=== PATIENT | female | born 1990 | race African-American/Black ===

== ENCOUNTER 2020-01-03 19:33 | Emergency (ER) | payer SELFPAY ==
[2020-01-03 19:41] VITALS: BP 132/90; PULSE 95; RESP 17; TEMP 36.2; O2SAT 100
[2020-01-03] MEDS: SODIUM CHLORIDE 0.9% IV 1,000 ML 999 ML IV CONT (22:10)
[2020-01-03 22:20] LABS: Basophils Absolute Auto 0.1 K/mm3 (0.0-0.1); Basophils Percent Auto 0.9 % (0.2-1.2); Eosinophils Absolute Auto 0.1 K/mm3 (0-0.3); Eosinophils Percent Auto 1.5 % (0-4.4); Hematocrit 39.8 % (37.0-47.0); Hemoglobin 13.4 g/dL (12.0-15.0); Immature Granulocyte Absolute 0.01 K/mm3 (0.00-0.031); Immature Granulocyte Percent A 0.1 % (0-0.5); Lymphocytes Absolute Auto 3.47 K/mm3 (0.9-3.2); Lymphocytes Percent Auto 50.8 % (18.3-44.2); Mean Corpuscular HGB Conc 33.7 g/dl (32-36); Mean Corpuscular Hemoglobin 29.5 pg (26-34); Mean Corpuscular Volume 87.5 fl (80-100); Mean Platelet Volume 11.9 fl (7.4-10.4); Monocytes Absolute Auto 0.4 K/mm3 (0.1-0.6); Monocytes Percent Auto 5.6 % (2.6-8.5); Neutrophils Absolute Auto 2.8 K/mm3 (1.3-6.7); Neutrophils Percent Auto 41.1 % (45.5-73.1); Platelet Count Result 277 k/mm3 (150-375); Red Blood Count 4.55 M/mm3 (4.2-5.4); Red Cell Distribution Width 12.4 % (11.5-14.5); White Blood Count 6.8 K/mm3 (4.5-10.0)
[2020-01-03 22:28] LABS: Anion Gap 10 mmol/L (8-16); Blood Urea Nitrogen 14 mg/dL (7-17); Calcium 9.9 mg/dL (8.4-10.2); Carbon Dioxide 22 mmol/L (22-30); Chloride 105 mmol/L (98-107); Estimated CRCL calculation 73 ml/min; Estimated Glomerular Filt Rate > 60; Glucose 95 mg/dL (65-105); Potassium 3.8 mmol/L (3.4-5.0); Sodium 137 mmol/L (137-145)
--- NOTE | 2020-01-03 22:59 | ED.ANXIETY ---
HPI - Anxiety General Chief Complaint: Anxiety Stated Complaint: Panic attacks Time Seen by Provider: 01/03/20 21:37 Source: patient and family Mode of arrival: ambulatory Limitations: no limitations History of Present Illness HPI narrative: 29-year-old with a history of anxiety disorder here with complaints of unable to eat or drink for last few days. She states that she feels something is stuck in her throat. She thinks she is dehydrated. She is presently not on any anxiety medication. As per the mother she was put on anxiety medication which made her feel weird so she stopped taking the medication. She denies any fever or chills. complaint: anxiety Severity: moderate Provoking factors: none known Exacerbating factors: nothing Related Data Allergies Allergy/AdvReac Type Severity Reaction Status Date / Time No Known Allergies Allergy Unknown Verified 01/03/20 19:44 Review of Systems Review of Systems: All systems reviewed & are unremarkable except as noted in HPI and below Constitutional: Constitutional: Reports as per HPI Eyes: Eyes: Reports as per HPI ENT: Reports system reviewed and no additional complaints, except as documented Cardiovascular: Cardiovascular: Reports no additional cardiovascular complaints Respiratory: Respiratory: Reports no additional respiratory complaints Gastrointestinal: Gastrointestinal: Reports no additional gastrointestinal complaints Musculoskeletal: Musculoskeletal: Reports no additional musculoskeletal complaints Neurologic: Reports as per HPI Psychiatric: Psychiatric: Reports anxiety PMFSH Family History Family History Father Hypertension Sibling Asthma Social History Social History Second hand tobacco smoke exposure: No Alcohol intake: never Gender identity (if verbalized by the patient): Female Exam Narrative: Exam Narrative: GENERAL: Well-appearing, well-nourished, and in no acute distress. HEAD: Normocephalic, atraumatic. EYES: PERRLA and EOMI. ENT: Nares clear, no rhinorrhea or epistaxis. Mucous membranes moist. NECK: Supple. CHEST: Clear to auscultation. No respiratory distress. HEART: Regular rate and rhythm. No murmur heard. Normal peripheral pulses. ABDOMEN: Soft, nontender, nondistended, normal active bowel sounds. EXTREMITIES: Normal range of motion. No edema. SKIN: Warm, dry, no rash. NEURO: No focal deficits. Alert and oriented x3. PSYCH: Anxious and nervous Course Vital Signs Vital signs: Vital Signs Temperature 36.2 C L 01/03/20 19:41 Pulse Rate 95 01/03/20 19:41 Respiratory Rate 17 01/03/20 19:41 Blood Pressure 132/90 01/03/20 19:41 Pulse Oximetry 100 01/03/20 19:41 Temperature 36.2 C L 01/03/20 19:41 Pulse Rate 95 01/03/20 19:41 Respiratory Rate 17 01/03/20 19:41 Blood Pressure 132/90 01/03/20 19:41 Pulse Oximetry 100 01/03/20 19:41 MDM - Anxiety MDM Narrative Medical decision making narrative: With a history of not eating drinking and like to do a BMP to make sure that she is not dehydrated. Also give her IV Ativan to help her symptoms. Did discuss lab values with the patient and the mother. After IV Ativan patient started feeling much better I also gave her a liter of fluid. Differential Diagnosis Differential diagnosis: Likely panic disorder and acute anxiety Lab Data Result diagrams: 01/03/20 22:09 01/03/20 22:09 Labs: Lab Results 01/03/20 01/03/20 Range/Units 22:09 22:09 WBC 6.8 (4.5-10.0) K/mm3 RBC 4.55 (4.2-5.4) M/mm3 Hgb 13.4 (12.0-15.0) g/dL Hct 39.8 (37.0-47.0) % MCV 87.5 (80-100) fl MCH 29.5 (26-34) pg MCHC 33.7 (32-36) g/dl RDW 12.4 (11.5-14.5) % Plt Count 277 (150-375) k/mm3 MPV 11.9 H (7.4-10.4) fl Immature Gran % (Auto) 0.1 (0-0.5) % Neut % (Auto) 41.1 L (45.5-73.1) % Lymph % (A
[2020-01-03 23:20] VITALS: BP 102/58; PULSE 82; RESP 16; O2SAT 97
== END 2020-01-03 23:21 | disposition home or self-care (01) ==
PROVIDERS: Emergency Provider Family Medicine; PCP Family Medicine
DX: F41.9 Anxiety disorder, unspecified (principal)
CPT/HCPCS: 36415; 80048; 85025; 96361; 96374; 99284; J2060; J7030

== ENCOUNTER → 2020-10-09 01:15 | Outpatient (CLI) | payer OTHER, SELFPAY ==
[2020-10-09 19:38] LABS: SARS-CoV-2 RNA PCR Negative
== END ==
PROVIDERS: PCP Family Medicine; Visit Provider Internal Medicine Gastroenterology
DX: Z01.812 Encounter for preprocedural laboratory examination (principal); Z20.822 Contact with and (suspected) exposure to COVID-19
CPT/HCPCS: C9803; U0003; U0005

== ENCOUNTER 2020-10-12 00:06 | Day surgery (SDC) | payer OTHER, SELFPAY ==
[2020-09-30 12:14] VITALS: BMI 16.0
[2020-10-12 08:43] VITALS: BP 99/61; PULSE 74; RESP 16; TEMP 36.1; O2SAT 100; BMI 15.5
[2020-10-12] MEDS: LACTATED RINGERS 1,000 ML 150 ML IV CONT (08:59)
--- NOTE | 2020-10-12 09:25 | WPDANESEPPF ---
Anes - Initial Pre Proc Eval Procedure: Operation Date: 10/12/20 10:00 Proposed Procedures p Esophagogastroduodenoscopy - Khari Mar MD Date/Time: 10/12/20 09:25 Surgeon: Khari Mar MD Pre Op Diagnosis: dysphagia Patient Data Age: 30 Gender: F Height: 5 ft 3 in Weight: 39.7 kg Last Vital Signs Temp 97 F L 10/12/20 08:43 Pulse 74 10/12/20 08:43 Resp 16 10/12/20 08:43 BP 99/61 L 10/12/20 08:43 Pulse Ox 100 10/12/20 08:43 Allergies Allergy/AdvReac Type Severity Reaction Status Date / Time No Known Allergies Allergy Unknown Verified 09/30/20 12:13 Home Medications Medication Instructions Recorded Confirmed Type omeprazole 20 mg capsule,delayed 20 mg PO DAILY #30 cap 07/05/20 09/30/20 Rx release Patient hx anesthesia problems: none Family hx anesthesia problems: none PMFSH Past Medical History Medical History (Updated 10/12/20 @ 09:25 by Ishmael Zambrano MD) Anxiety Family History Family History Father Hypertension Sibling Asthma Social History Social History Smoking status: Former smoker Tobacco type: cigarettes Second hand tobacco smoke exposure: No Alcohol intake: former Substance use: never Substance use type: does not use Living arrangements: with family Gender identity (if verbalized by the patient): Female Spiritual care concerns: No Anes - Eval Final PreProcedure Day of Procedure 10/12/20 09:25 Patient weight: normal Heart: regular rate and rhythm Lungs: clear to auscultation Airway: Mallampati scale class II Neurological: alert and oriented Last oral intake: >/= 8 hours ASA classification: II Emergent: no Anesthetic plan: proceed Anesthesia type and monitoring: general GIVS and standard monitoring Informed Consent: The patient's anesthetic plan and its attendant risks and benefits were discussed with the patient/family/POA. Questions were solicited and answers provided to the satisfaction of the patient/family/POA.
--- NOTE | 2020-10-12 10:01 | PM.HPGS ---
History of Present Illness History of Present Illness Consent: Risks, benefits, and alternatives have been discussed and questions answered. Patient agrees to proceed with procedure. Chief complaint: dysphagia Narrative: Carola Weinstein is a 30 year old female intermittent dyphagia to solids, tried PPI with some improvement but not longer using, never had egd Review of Systems Constitutional: Constitutional: Denies headache(s) and Denies weakness Eyes: Eyes: Denies blurry vision ENT: Reports Normal hearing present, Denies headache(s) and Denies neck pain Cardiovascular: Cardiovascular: Denies chest pain and Denies dyspnea Respiratory: Respiratory: Denies dyspnea Gastrointestinal: Gastrointestinal: Reports no additional gastrointestinal complaints Genitourinary: Genitourinary: Denies dysuria Musculoskeletal: Musculoskeletal: Denies neck pain Integumentary/Breasts: Skin/Breast: Denies dry skin Neurologic: Reports Normal hearing present, Denies headache(s) and Denies weakness Psychiatric: Psychiatric: Denies anxiety Endocrine: Endocrine: Denies change in body appearance Hematologic/Lymphatic: Hematologic/Lymphatic: Denies easy bleeding Allergic/Immunologic: Allergic/Immunologic: Denies urticaria [facility] Past Medical History Medical History (Updated 10/12/20 @ 10:01 by Khari Mar MD) Anxiety Dysphagia Family History Family History Father Hypertension Sibling Asthma Social History Social History Smoking status: Former smoker Tobacco type: cigarettes Second hand tobacco smoke exposure: No Alcohol intake: former Substance use: never Substance use type: does not use Living arrangements: with family Gender identity (if verbalized by the patient): Female Spiritual care concerns: No Meds Home Medications and Allergies Home Medications Medication Instructions Recorded Confirmed Type omeprazole 20 mg capsule,delayed 20 mg PO DAILY #30 cap 07/05/20 09/30/20 Rx release Allergies Allergy/AdvReac Type Severity Reaction Status Date / Time No Known Allergies Allergy Unknown Verified 09/30/20 12:13 Vital Signs Vital Signs - 24 hr 10/12/20 08:43 Temperature 97 F L Pulse Rate 74 Respiratory Rate 16 Blood Pressure 99/61 L Pulse Oximetry 100 Exam Const: General: comfortable and no acute distress HENMT: General nose exam: Normal nares present Eyes: General: appearance normal, both eyes and all related structures Neck: Neck: no JVD Resp: Auscultation: clear to auscultation bilaterally Cardio: Rate: regular rate Rhythm: regular rhythm GI: Inspection: non-distended GI Palp: Yes Soft to palpation Skin: General skin exam: normal color Neuro: General: gait normal Speech: normal speech Extrem: General: normal to inspection Psych: Mental Status: mental status grossly normal Assessment and Plan Assessment and plan (1) Dysphagia: Code(s): R13.10 - Dysphagia, unspecified Status: Acute Assessment and Plan: egd with bx
[2020-10-12] MEDS: BENZOCAINE (*SP) 60 ML SPRAY CAN (HURRICAINE) 1 SPRAY MUCOUS MEM (10:06)
[2020-10-12 10:15] VITALS: BP 91/57; PULSE 63; RESP 24; O2SAT 100
[2020-10-12 10:25] VITALS: BP 91/55; PULSE 62; RESP 20; O2SAT 100
[2020-10-12 10:35] VITALS: BP 102/72; PULSE 61; RESP 18; O2SAT 100
== END 2020-10-12 10:46 | disposition home or self-care (01) ==
PROVIDERS: PCP Family Medicine; Visit Provider Internal Medicine Gastroenterology
PROC: 0DJ08ZZ Inspection of Upper Intestinal Tract, Via Natural or Artificial Opening Endoscopic (ICD-10-PCS; CPT 43235; principal; 2020-10-12 10:00)
DX: R13.10 Dysphagia, unspecified (principal)
CPT/HCPCS: 43239; 88305; J2704; J7120

== ENCOUNTER 2021-02-26 15:10 | Emergency (ER) | payer OTHER, SELFPAY ==
--- NOTE | 2021-02-26 15:53 | ED_ITS ---
HPI - General Adult General Chief complaint: Skin/Abscess/Foreign Body Stated complaint: rash to left shoulder Time Seen by Provider: 02/26/21 15:53 Related Data Allergies Allergy/AdvReac Type Severity Reaction Status Date / Time No Known Allergies Allergy Unknown Verified 02/26/21 15:16 [facility] Past Medical History Medical History Anxiety Dysphagia Family History Family History Father Hypertension Sibling Asthma Social History Social History Smoking status: Current some day smoker (occasional cigar) Tobacco type: cigarettes Second hand tobacco smoke exposure: No Alcohol intake: former Substance use: never Substance use type: does not use Gender identity (if verbalized by the patient): Female Spiritual care concerns: No Medical Decision Making Lab Data Labs: UCG Bedside Result Negative Reference Range: Negative UCG Bedside Result Negative Reference Range: Negative Discharge Plan Discharge Clinical Impression: Insect bite Qualifiers: Encounter type: initial encounter Site of insect bite: shoulder Laterality: left Qualified Code(s): S40.262A - Insect bite (nonvenomous) of left shoulder, initial encounter Patient Disposition: Home, Self-Care Condition: Stable Instructions: Cellulitis (ED), Insect Bite or Sting (ED) Prescriptions: New doxycycline hyclate 100 mg capsule 100 mg PO BID 7 Days Qty: 14 RF: 0 No Action omeprazole 40 mg capsule,delayed release(DR/EC) 40 mg PO DAILY Qty: 90 RF: 3 Follow-up/Referrals: Hair Yuan MD [Primary Care Provider] - 02/28/21 Time of Disposition: 16:05
--- NOTE | 2021-02-26 16:01 | ED.SKABFB ---
HPI - Skin/Abscess/Foreign Bdy General Chief complaint: Skin/Abscess/Foreign Body Stated complaint: rash to left shoulder Time Seen by Provider: 02/26/21 15:53 Source: patient Mode of arrival: ambulatory Limitations: no limitations History of Present Illness HPI narrative: Patient is a 30-year-old female complaining of tender red area on her left shoulder possibly an insect bite few days ago but now it has enlarged. Patient denies any facial, lip, tongue or throat swelling. Patient denies any shortness of breath. Patient denies any fever or chills. Patient denies any other rash. Related Data Allergies Allergy/AdvReac Type Severity Reaction Status Date / Time No Known Allergies Allergy Unknown Verified 02/26/21 15:16 Review of Systems Review of Systems: All systems reviewed & are unremarkable except as noted in HPI and below Constitutional: Constitutional: Reports as per HPI Eyes: Eyes: Denies blurry vision, Denies change in vision and Denies loss of vision ENT: Denies dizziness, Denies ear discharge, Denies headache(s), Denies lip swelling, Denies epistaxis, Denies nasal congestion, Denies neck pain, Denies throat swelling and Denies tongue swelling Cardiovascular: Cardiovascular: Denies chest pain, Denies chest pain at rest, Denies chest pain with activity, Denies diaphoresis, Denies rapid heart rate, Denies edema, Denies irregular heart rhythm, Denies lightheadedness, Denies palpitations, Denies dyspnea and Denies dyspnea on exertion Respiratory: Respiratory: Denies chest congestion, Denies cough, Denies hemoptysis, Denies dyspnea and Denies dyspnea on exertion Gastrointestinal: Gastrointestinal: Denies abdominal pain, Denies melena, Denies hematochezia, Denies diarrhea, Denies nausea, Denies vomiting and Denies hematemesis Musculoskeletal: Musculoskeletal: Denies abnormal gait, Denies deformity, Denies joint swelling, Denies limited range of motion, Denies neck pain and Denies numbness Neurologic: Denies Abnormal speech present, Denies abnormal gait, Denies confusion, Denies dizziness, Denies headache(s), Denies focal weakness, Denies loss of vision, Denies numbness, Denies Other visual disturbances, Denies Sensory deficit (Neuro) and Denies weakness Psychiatric: Psychiatric: Denies confusion, Denies depression, Denies auditory hallucinations, Denies homicidal ideation and Denies suicidal ideation Endocrine: Endocrine: Denies cold intolerance, Denies excessive sweating, Denies fatigue, Denies heat intolerance and Denies palpitations Hematologic/Lymphatic: Hematologic/Lymphatic: Denies easy bleeding and Denies easy bruising Allergic/Immunologic: Allergic/Immunologic: Denies lip swelling, Denies throat swelling and Denies tongue swelling PMFSH Past Medical History Medical History Anxiety Dysphagia Family History Family History Father Hypertension Sibling Asthma Social History Social History Smoking status: Current some day smoker (occasional cigar) Tobacco type: cigarettes Second hand tobacco smoke exposure: No Alcohol intake: former Substance use: never Substance use type: does not use Gender identity (if verbalized by the patient): Female Spiritual care concerns: No Exam Const: General: cooperative, healthy appearing, comfortable, no acute distress, well developed, alert and awake; No confusion Orientation/consciousness: oriented to person, oriented to place, oriented to time, patient oriented x3 and No confusion Limitations: no limitations HENMT: Head: normal to inspection, normocephalic and atraumatic Ears: hearing grossly normal bilaterally, TM normal on the right and TM normal on the left General nose exam: Normal external nose present, Normal nares present and No nasal discharge present Face and sinus: normal facial ex
== END 2021-02-26 17:58 | disposition home or self-care (01) ==
PROVIDERS: Emergency Provider Emergency Medicine; PCP Family Medicine
DX: S41.052A Open bite of left shoulder, initial encounter (principal); F17.210 Nicotine dependence, cigarettes, uncomplicated; F17.290 Nicotine dependence, other tobacco product, uncomplicated; W57.XXXA Bitten or stung by nonvenomous insect and other nonvenomous arthropods, initial encounter
CPT/HCPCS: 81025; 99283

== ENCOUNTER 2021-12-05 12:33 | Outpatient (CLI) | payer OTHER, SELFPAY ==
--- NOTE | ~2021-12-05 | US_ITS ---
EXAMINATION: US OB <= 14 weeks fetus DATE: 12/05/2021 13:42 INDICATION: Uncertain dating of TECHNIQUE: Real-time pelvic ultrasound utilizing transabdominal probe was performed. The michelle dennis radiologist was not present for the study. COMPARISON: None. FINDINGS: The uterus measures 13.8 x 9.0 x 10.7 cm. There is an anterior placenta which appears low lying alth ough the cervix is not identified on the provided images.There is a single fetus in variable position within the gestational sac with crown-rump length of 7.5 cm which correlates with an estimated gesta tional age of 13 weeks and 4 days. heart motion is identified measuring 158 beats per minute (b pm) by M-mode Doppler. 2.5 cm subserosal fibroid along the anterior uterus The following biometric data were obtained: BPD: 2.2 cm -> 13 weeks 4 days Abdominal circumference: 7.4 cm -> 13 weeks 6 days Femur length: 1.1 cm -> 13 weeks 1 days These measurements are concordant. Estimated weight: 77 g (+/-) 12 g IMPRESSION: 1. Single living fetus in variable presentation with heart rate of 158 bpm. 2. Gestational age by ultrasound of 13 weeks 4 day(s) +/- 1 week 0 day(s) with ultrasound estimated d ate of delivery (SERJIO) of 06/08/2022. Estimated weight is 76th percentile by Hadlock criteria when 06/13/2022 is used as the SERJIO. Please correlate with clinical information or earlier ultrasounds for m ost accurate SERJIO. 3. Anterior placenta which appears low lying although the cervix is not identified on the provided im ages. 4. 2.5 cm anterior subserosal fibroid. Reviewed, dictated and finalized at location A. IMPRESSION: 1. Single living fetus in variable presentation with heart rate of 158 bp m. 2. Gestational age by ultrasound of 13 weeks 4 day(s) +/- 1 week 0 day(s) with ultrasound estimated date of delivery (SERJIO) of 06/08/2022. Estimated weight is 76th percentile by Hadlock criteria when 06/13/2022 is used as the SERJIO. Pleas e correlate with clinical information or earlier ultrasounds for most accurate SERJIO. 3. Anterior placenta which appears low lying although the cervix is not identif ied on the provided images. 4. 2.5 cm anterior subserosal fibroid.
== END 2021-12-05 12:34 | disposition home or self-care (01) ==
PROVIDERS: PCP Family Medicine; Visit Provider Advanced Practice Midwife
DX: Z36.87 Encounter for antenatal screening for uncertain dates (principal); Z3A.13 13 weeks gestation of pregnancy; D25.2 Subserosal leiomyoma of uterus
CPT/HCPCS: 76801

== ENCOUNTER 2022-01-17 10:49 | Outpatient (CLI) | payer OTHER, SELFPAY ==
--- NOTE | ~2022-01-17 | US_ITS ---
EXAMINATION: US OB /maternal detail DATE: 01/17/2022 12:11 INDICATION: Second trimester anatomic survey TECHNIQUE: Real-time ultrasound of the pelvis was performed. COMPARISON: None. FINDINGS: There is a single living fetus in variable presentation. The placenta is anterior and 2.9 cm from the internal cervical os. There is a 2.6 x 2.7 x 1.3 cm hypoechoic area of the placenta. heart rat e is 140 beats per minute (bpm). cardiac activity and movement are noted. The amniotic f luid index is subjectively normal. The following anatomy was identified as normal: 4 chamber heart 3 vessel cord cord insertion kidneys urinary bladder stomach spine diaphragm ventricles cisterna magna cerebellum The following biometric data were obtained: Biparietal diameter (BPD): 4.3 cm; head circumference (HC): 16.2 cm; abdominal circumference (AC): 14 .8 cm; femur length (FL): 3.2 cm. These measurements are concordant. Estimated weight is 316 g +/- 47 g, which correlates with the 90th percentile when 06/13/2022 is used as estimated date of delivery. As single measurements, these parameters are each equal to the following estimated gestational ages w ith ranges of +/- 2 standard deviations: BPD: 19 weeks 0 days +/- 1 weeks 5 days. HC: 19 weeks 0 days +/- 1 weeks 3 days. AC: 20 weeks 1 days +/- 2 weeks 0 days. FL: 19 weeks 6 days +/- 1 weeks 6 days. estimated gestational age based solely on measurements from this exam is 19 weeks 4 days +/- 1 weeks 3 days. IMPRESSION: 1. Single living fetus in variable presentation. 2. Estimated weight is 316 g +/- 47 g, which correlates with the 90th percentile when 06/13/2022 is used as estimated date of delivery. 3. Hypoechoic area in the placenta measuring up to 2.7 cm, probable venous bautista. Attention on follow- up examination is recommended. Reviewed, dictated and finalized at location B. IMPRESSION: 1. Single living fetus in variable presentation. 2. Estimated weight is 316 g +/- 47 g, which correlates with the 90th per centile when 06/13/2022 is used as estimated date of delivery. 3. Hypoechoic area in the placenta measuring up to 2.7 cm, probable venous bautista . Attention on follow-up examination is recommended.
== END 2022-01-17 10:50 | disposition home or self-care (01) ==
LOC: ANHIMG 10:50
PROVIDERS: PCP Family Medicine; Visit Provider Advanced Practice Midwife
DX: O44.42 Low lying placenta NOS or without hemorrhage, second trimester (principal); Z3A.19 19 weeks gestation of pregnancy
CPT/HCPCS: 76805

== ENCOUNTER 2022-02-06 13:39 | Emergency (ER) | payer OTHER, SELFPAY ==
[2022-02-06 13:41] VITALS: BP 109/71; PULSE 90; RESP 16; TEMP 36.6; O2SAT 99
[2022-02-06 14:03] VITALS: RESP 18
--- NOTE | 2022-02-06 14:14 | ED.GENADULT ---
HPI - General Adult General Chief complaint: Unspecified Stated complaint: sinus infection Time Seen by Provider: 02/06/22 13:47 History of Present Illness HPI narrative: 31-year-old female who is [address] Skelton presents the emergency room with right-sided facial tenderness, sinus congestion, postnasal drip, resolved sore throat and occasional cough for 6 days. also states that she was sneezing first couple of days of symptoms. Admits to taking baby dose of Tylenol but has not alleviated her symptoms. Denies fevers. Related Data Home Medications Medication Instructions Recorded Confirmed buspirone 5 mg tablet mg 02/06/22 fluoxetine 10 mg capsule mg 02/06/22 02/06/22 Allergies Allergy/AdvReac Type Severity Reaction Status Date / Time No Known Allergies Allergy Unknown Verified 02/06/22 13:39 Review of Systems Review of Systems: CONSTITUTIONAL: Denies fever, chills, or sweats. EYES: Denies visual changes, redness, or discharge. ENT: Reports rhinorrhea, congestion, sore throat, or otalgia. CARDIOVASCULAR: Denies chest pain, palpitations, or edema. RESPIRATORY: Denies cough or dyspnea. GASTROINTESTINAL: Denies abdominal pain, nausea, vomiting, or diarrhea. GENITOURINARY: Denies dysuria or hematuria. SKIN: Denies rash or itching. MUSCULOSKELETAL: Denies back pain, joint pain, or myalgia. NEUROLOGIC: Denies headache, numbness, dizziness, or weakness. PSYCHIATRIC: Denies anxiety or depression. PMFSH Past Medical History Medical History Anxiety Dysphagia Family History Family History Father Hypertension Sibling Asthma Social History Social History Smoking status: Current some day smoker (occasional cigar) Tobacco type: cigarettes Second hand tobacco smoke exposure: No Alcohol intake: former Substance use: never Substance use type: does not use Gender identity (if verbalized by the patient): Female Spiritual care concerns: No Exam Narrative: GENERAL: Well-appearing, well-nourished, no physical limitations, and in no acute distress. HEAD: Normocephalic, atraumatic. Tenderness over the right maxilla sinus EYES: Conjunctivae normal, PERRLA and EOMI. ENT: External nose normal, Nares clear, no rhinorrhea or epistaxis. Mucous membranes moist. Oropharynx without tonsillar hypertrophy exudate or other lesions. Clear effusion bilaterally NECK: Supple. No meningeal signs. No adenopathy or masses. No carotid bruits or JVD CHEST: Clear to auscultation. No respiratory distress. No wheezes rales or rhonchi. HEART: Regular rate and rhythm. No murmur heard. Normal peripheral pulses. EXTREMITIES: Normal range of motion. No edema. No clubbing or cyanosis SKIN: Warm, dry, no rash. No noted wounds NEURO: No focal deficits. Alert and oriented x3. MAEW. CN's II-XI intact bilaterally, normal gait PSYCH: Cooperative. Normal mood and affect. Course Course Emergency Course: 1509: Case with Dr. Donovan. She is okay with patient going home on low-dose Sudafed and Flonase. Vital Signs Vital signs: Vital Signs Temperature 36.6 C 02/06/22 13:41 Pulse Rate 90 02/06/22 13:41 Respiratory Rate 16 02/06/22 13:41 Blood Pressure 109/71 02/06/22 13:41 Pulse Oximetry 99 02/06/22 13:41 Temperature 36.6 C 02/06/22 13:41 Pulse Rate 90 02/06/22 13:41 Respiratory Rate 18 02/06/22 14:03 Blood Pressure 109/71 02/06/22 13:41 Pulse Oximetry 99 02/06/22 13:41 Medical Decision Making Vital Signs Vital Signs: Vital Signs Temperature 36.6 C 02/06/22 13:41 Pulse Rate 90 02/06/22 13:41 Respiratory Rate 16 02/06/22 13:41 Blood Pressure 109/71 02/06/22 13:41 Pulse Oximetry 99 02/06/22 13:41 Temperature 36.6 C 02/06/22 13:41 Pulse Rate 90 02/06/22 13:41 Respiratory Ra
[2022-02-06 15:01] LABS: SARS-CoV-2 RNA PCR Negative
== END 2022-02-06 15:53 | disposition home or self-care (01) ==
LOC: ANHED 15:35
PROVIDERS: Emergency Provider Nurse Practitioner Family; PCP Family Medicine
DX: O99.512 Diseases of the respiratory system complicating pregnancy, second trimester (principal); J32.9 Chronic sinusitis, unspecified; O99.342 Other mental disorders complicating pregnancy, second trimester; F41.9 Anxiety disorder, unspecified; O99.332 Smoking (tobacco) complicating pregnancy, second trimester; F17.290 Nicotine dependence, other tobacco product, uncomplicated; F17.210 Nicotine dependence, cigarettes, uncomplicated; Z20.822 Contact with and (suspected) exposure to COVID-19; Z3A.00 Weeks of gestation of pregnancy not specified
CPT/HCPCS: 99283; C9803; U0003; U0005

== ENCOUNTER 2022-02-22 11:07 | Outpatient (CLI) | payer OTHER, SELFPAY ==
--- NOTE | ~2022-02-22 | US_ITS ---
EXAMINATION: US OB follow up DATE: 02/22/2022 12:08 INDICATION: Size less than dates during second trimester TECHNIQUE: Real-time ultrasound of the pelvis was performed. The interpreting radiologist was not pre sent for the study. COMPARISON: None. FINDINGS: There is a single living fetus in vertex presentation. The placenta is anterior. card iac activity and movement are noted. heart rate is 144 beats per minute (bpm). The amniot ic fluid index is 11.9 cm which is normal (normal range: 9.8 cm to 21.9 cm). A nuchal cord is noted. The following biometric data were obtained: Biparietal diameter (BPD): 5.8 cm; head circumference (HC): 21.9 cm; abdominal circumference (AC): 19 .5 cm; femur length (FL): 4.5 cm. These measurements are concordant. Estimated weight is 685 g +/- 102 g, which correlates with the 50th percentile when 06/13/2022 is used as estimated date of delivery. As single measurements, these parameters are each equal to the following estimated gestational ages w ith ranges of +/- 2 standard deviations: BPD: 23 weeks 5 days +/- 1 weeks 5 days. HC: 24 weeks 0 days +/- 1 weeks 3 days. AC: 24 weeks 1 days +/- 2 weeks 1 days. FL: 24 weeks 5 days +/- 2 weeks 1 days. estimated gestational age based solely on measurements from this exam is 24 weeks 1 days +/- 1 weeks 5 days. IMPRESSION: 1. Single living fetus in vertex presentation. 2. Nuchal cord. 3. Normal amniotic fluid index. 4. Estimated weight is 685 g +/- 102 g, which correlates with the 50th percentile when 06/13/2022 is used as estimated date of delivery. Reviewed, dictated and finalized at location A. IMPRESSION: 1. Single living fetus in vertex presentation. 2. Nuchal cord. 3. Normal amniotic fluid index. 4. Estimated weight is 685 g +/- 102 g, which correlates with the 50th pe rcentile when 06/13/2022 is used as estimated date of delivery.
== END 2022-02-22 11:08 | disposition home or self-care (01) ==
PROVIDERS: PCP Family Medicine; Visit Provider Advanced Practice Midwife
DX: O36.5930 Maternal care for other known or suspected poor fetal growth, third trimester, not applicable or unspecified (principal); Z3A.00 Weeks of gestation of pregnancy not specified
CPT/HCPCS: 76816

== ENCOUNTER 2022-04-10 11:27 | Outpatient (CLI) | payer OTHER, SELFPAY ==
[2022-04-10 13:11] LABS: Hematocrit 33.8 % (37.0-47.0); Hemoglobin 11.1 g/dL (12.0-15.0)
[2022-04-10 13:20] LABS: Glucose 1 Hour PP 50gm Dose 118 mg/dL
[2022-04-10 14:01] LABS: HIV 1/2 Ab P24 Ag Result Negative (Negative)
== END 2022-04-10 11:28 | disposition home or self-care (01) ==
LOC: ANHLAB 11:29
PROVIDERS: PCP Family Medicine; Visit Provider Obstetrics & Gynecology Gynecology
DX: Z36.9 Encounter for antenatal screening, unspecified (principal)
CPT/HCPCS: 36415; 82947; 85014; 85018; 86703; G0432

== ENCOUNTER 2022-04-19 11:20 | Outpatient (CLI) | payer OTHER, SELFPAY ==
--- NOTE | ~2022-04-19 | US_ITS ---
EXAMINATION: US OB follow up DATE: 04/19/2022 12:10 INDICATION: Size less than dates during third trimester TECHNIQUE: Real-time ultrasound of the pelvis was performed. The interpreting radiologist was not pre sent for the study. COMPARISON: 02/22/2022 FINDINGS: There is a single living fetus in vertex presentation. The placenta is anterior. card iac activity and movement are noted. heart rate is 146 beats per minute (bpm). The amniot ic fluid index is 10.1 cm which is normal. The following biometric data were obtained: Biparietal diameter (BPD): 7.7 cm; head circumference (HC): 27.2 cm; abdominal circumference (AC): 25 .4 cm; femur length (FL): 6.2 cm. These measurements are concordant. Estimated weight is 1583 g +/- 237 g, which correlates with the 6th percentile when 06/13/2022 is used as estimated date of delivery. As single measurements, these parameters are each equal to the following estimated gestational ages w ith ranges of +/- 2 standard deviations: BPD: 30 weeks 5 days +/- 3 weeks 1 days. HC: 30 weeks 2 days +/- 3 weeks 0 days. AC: 29 weeks 4 days +/- 2 weeks 1 days. FL: 32 weeks 0 days +/- 3 weeks 0 days. estimated gestational age based solely on measurements from this exam is 30 weeks 5 days +/- 2 weeks 1 days. IMPRESSION: 1. Single living fetus in vertex presentation. 2. Estimated weight is 1583 g +/- 237 g, which correlates with the 6th percentile when 06/13/2022 is used as estimated date of delivery. 3. Normal amniotic fluid index. Reviewed, dictated and finalized at location [facility]. [facility] IMPRESSION: 1. Single living fetus in vertex presentation. 2. Estimated weight is 1583 g +/- 237 g, which correlates with the 6th pe rcentile when 06/13/2022 is used as estimated date of delivery. 3. Normal amniotic fluid index.
== END 2022-04-19 11:21 | disposition home or self-care (01) ==
PROVIDERS: PCP Family Medicine; Visit Provider Advanced Practice Midwife
DX: O36.5930 Maternal care for other known or suspected poor fetal growth, third trimester, not applicable or unspecified (principal); Z3A.30 30 weeks gestation of pregnancy
CPT/HCPCS: 76816

== ENCOUNTER 2022-04-20 09:18 | Outpatient (RCR) | payer OTHER, SELFPAY ==
[2022-04-19 18:43] VITALS: BP 116/57; PULSE 104
--- NOTE | 2022-04-19 19:54 | PC.NURSE ---
BPP showing low fluid level based on preliminary report, final repost pending. Monitors reapplied.
--- NOTE | 2022-04-19 20:19 | PC.NURSE ---
Robbin Hammer CNM notified of low JUAN noted on US. Dock Superintendent states that patient had an US this morning for growth and JUAN was normal at that time. Also informed that US tech was unable to do Cord Dopplers at this time due to Tech limitations. Ok to dc patient home with kick counts and to have patient come tomorrow to do cord dopplers and repeat JUAN.
--- NOTE | 2022-04-19 20:26 | PC.NURSE ---
Tracing from [id number], Tracing reactive, baseline 125 with accels.
--- NOTE | 2022-04-19 21:10 | PC.NURSE ---
Addendum entered by Christina Mendenhall RN 04/19/22 21:25: Call was placed at 2027 Original Note: Plan of care discussed with Patient and spouse, patient voicing concerns regarding fluid level. Patient denies leaking. Patient wishing to talk to aerial gunner. Radio Television Technical Director called and spoke to patient. Patient to come tomorrow for Dopplers and repeat JUAN.
--- NOTE | ~2022-04-20 | US_ITS ---
EXAMINATION: US OB limited w BPP DATE: 04/19/2022 20:07 INDICATION: Evaluate biophysical profile with JUAN, size smaller than dates. TECHNIQUE: Real-time ultrasound of the pelvis was performed. COMPARISON: OB ultrasound follow-up, same date. FINDINGS: There is a single living fetus in vertex presentation, longitudinal lie. The placenta is anterior. T he placental margin is low lying but does not appear to abut or cover the internal os, noting that th e margin of the patella in the cervix were difficult to visualize. heart rate is 135 beats per minute (bpm). The amniotic fluid index is 3.8, which is low. macro biometrics Biophysical profile performed by the technologist: breathing (30 sec sustained breathing in 30 minutes): 2 out of 2 movement (3 gross body movements in 30 minutes: 2 out of 2 tone (one episode of bdimfbc-bjclhkgpn-yqbuzuw limb movement): 2 out of 2 Amniotic fluid pocket (2 cm): 0 out of 2 Total score: 6 out of 8 IMPRESSION: 1. Single living fetus in vertex presentation, longitudinal lie. 2. Normal, anterior placenta. 3. Biophysical profile 6 out of 8. 4. Oligohydramnios. 5. The placental margin may be low lying but does not appear to abut or cover the internal os, noting that the margin of the placenta and the cervix were difficult to visualize. Reviewed, dictated and finalized at location K. [facility] IMPRESSION: 1. Single living fetus in vertex presentation, longitudinal lie. 2. Normal, anterior placenta. 3. Biophysical profile 6 out of 8. 4. Oligohydramnios. 5. The placental margin may be low lying but does not appear to abut or cover t he internal os, noting that the margin of the placenta and the cervix were diff icult to visualize.
--- NOTE | ~2022-04-20 | US_ITS ---
EXAMINATION: 1. US OB limited 2. US umbilical doppler DATE: 04/20/2022 09:47 INDICATION: Small for gestational age. Third trimester. TECHNIQUE: Real-time ultrasound of the pelvis was performed. COMPARISON: Ultrasound 04/19/2022 FINDINGS: There is a single fetus in vertex presentation. The placenta is anterior. heart rate is 159 be ats per minute (bpm). The amniotic fluid index is 9.0 cm, which is normal. Umbilical artery pulsed Doppler demonstrates a peak systolic to end-diastolic velocity ratio (S/D rat io) of 2.2 (5th percentile = 2.16, 95th percentile = 3.8). IMPRESSION: 1. Single living fetus in vertex presentation. 2. Normal umbilical artery Doppler. Reviewed, dictated and finalized at location A. [facility] IMPRESSION: 1. Single living fetus in vertex presentation. 2. Normal umbilical artery Doppler.
--- NOTE | 2022-04-20 09:25 | PC.NURSE ---
Pt here for U/S. Order given by Chantell ABADM to NOT perform NST prior to U/S.
--- NOTE | 2022-04-20 10:17 | PC.NURSE ---
U/S reports called to Chantell Tovar CNM. OK to discharge to home. Phone given to pt for her to speak to provider. Pt instructed to return to L&D if she should have any change in baby's normal movement pattern, any leakage of fluid, vaginal bleeding, or more than 6 contractions in an hour if still less than 36 weeks- verbalizes understanding.
== END 2022-06-03 07:38 | disposition home or self-care (01) ==
LOC: ANHOBOP 09:18
PROVIDERS: PCP Family Medicine; Visit Provider Advanced Practice Midwife
DX: O36.5930 Maternal care for other known or suspected poor fetal growth, third trimester, not applicable or unspecified (principal); O41.03X0 Oligohydramnios, third trimester, not applicable or unspecified; Z3A.32 32 weeks gestation of pregnancy
CPT/HCPCS: 59025; 76815; 76819; 76820

== ENCOUNTER 2022-06-01 05:54 | Inpatient (IN) | payer OTHER, SELFPAY ==
[2022-06-01] VITALS (105 sets, daily range): BP systolic 93–135; BP diastolic 48–95; PULSE 25–154; RESP 16–18; TEMP 36.6–37.3; O2SAT 74–100; BMI 21.2
--- NOTE | 2022-06-01 06:33 | P.PNAN_ITS ---
Anes - Eval Pre Procedure Procedure: labor epidural Date/Time: 06/01/22 06:33 Surgeon: anthony Preop Diagnosis: pain during labor Pre Op Diagnosis: IOL Patient Data Age: 32 Gender: F Height: Weight: Last Vital Signs Temp 36.6 C 06/01/22 06:29 Allergies Allergy/AdvReac Type Severity Reaction Status Date / Time No Known Allergies Allergy Unknown Verified 05/12/22 12:30 Home Medications Medication Instructions Recorded Confirmed Type omeprazole 40 mg capsule,delayed 40 mg PO DAILY #90 caps 01/28/21 06/01/22 Rx release buspirone 5 mg tablet 5 mg PO DAILY 02/06/22 06/01/22 History fluoxetine 10 mg capsule 20 mg PO DAILY 02/06/22 06/01/22 History ferrous sulfate 325 mg (65 mg 325 mg PO DAILY 04/19/22 04/19/22 History iron) tablet vit no.95-ferrous 1 tablet PO DAILY 04/19/22 06/01/22 History fumarate 28 mg-folic acid 800 mcg tablet () Patient hx anesthesia problems: none Family hx anesthesia problems: none Results Review: All pre-operative results and documents have been reviewed as part of the pre- operative evaluation. PMFSH Past Medical History Medical History (Updated 06/01/22 @ 06:33 by Diane Ng CRNA) Anxiety Dysphagia IUP (intrauterine ), incidental Family History Family History Father Hypertension Sibling Asthma Social History Social History Smoking status: Current some day smoker (occasional cigar) Tobacco type: cigarettes Second hand tobacco smoke exposure: No Alcohol intake: former Substance use: never Substance use type: does not use Living arrangements: with family Gender identity (if verbalized by the patient): Female Spiritual care concerns: No Exam Day of Procedure 06/01/22 06:33
[2022-06-01] MEDS: LACTATED RINGERS 1,000 ML 125 ML IV CONT ×2 (06:51→08:31)
[2022-06-01] MEDS: OXYTOCIN 30 UNITS/NS 500 ML 30 UNITS/500 ML BAG IV CONT (06:52)
--- NOTE | 2022-06-01 06:56 | LDADM ---
This patient, Carola Weinstein, was admitted to Labor/Delivery/Recovery 106 on 06/01/22 at 05:54. Plans for labor, pain management and were discussed with patient. Patient/family oriented to hospital policies and general routines including ID bracelet, bed and alarms, visiting hours, pain management, procedures, bathroom and other care routines, personal items, smoking policy, room service/diet and guest tray routines, security routines, and visiting hours. Patient/Family are encouraged to report perceived risks to care and to ask questions if they do not understand what they are told or what they should do. See OBIX for further documentation.
[2022-06-01 06:57] LABS: Basophils Percent Auto 0.4 % (0.2-1.2); Eosinophils Absolute Auto 0.2 K/mm3 (0-0.3); Eosinophils Percent Auto 1.8 % (0-4.4); Hematocrit 34.5 % (37.0-47.0); Hemoglobin 11.4 g/dL (12.0-15.0); Immature Granulocyte Absolute 0.17 K/mm3 (0.00-0.031); Immature Granulocyte Percent A 2.1 % (0-0.5); Lymphocytes Absolute Auto 2.06 K/mm3 (0.9-3.2); Mean Corpuscular Hemoglobin 31.1 pg (26-34); Monocytes Absolute Auto 0.5 K/mm3 (0.1-0.6); Monocytes Percent Auto 6.2 % (2.6-8.5); Neutrophils Absolute Auto 5.3 K/mm3 (1.3-6.7); Neutrophils Percent Auto 64.5 % (45.5-73.1); Platelet Count Result 161 k/mm3 (150-375); Red Blood Count 3.67 M/mm3 (4.2-5.4); Red Cell Distribution Width 13.4 % (11.5-14.5); White Blood Count 8.2 K/mm3 (4.5-10.0)
--- NOTE | 2022-06-01 07:37 | WPDOBADMIT ---
Obstetrics - Admit Note Admission Note: record reviewed. No pertinent additions to the history and/or any subsequent changes in the physical findings that are not consistent with the expected course of the were found. Additions to the history and/or subsequent changes in the physical findings follow. Here for MIL for borderline IUGR and advance dilation. Cervix 4/80/+1 AROM with clear fluid. FHTs Reactive
[2022-06-01] MEDS: ONDANSETRON INJ 4 MG/2 ML VIAL IV PUSH (09:04)
[2022-06-01] MEDS: FLUoxetine HCL 20 MG CAPSULE PO (10:50)
[2022-06-01] MEDS: busPIRone HCL 5 MG TABLET PO (10:51)
--- NOTE | 2022-06-01 12:10 | PM.OBPRVD ---
OB - Delivery Note Procedure Delivery date: 06/01/22 Procedure: Events: Intrauterine Growth Restriction (IUGR) and Oligohydramnios Induction method: AROM and Per Pitocin Protocol Delivery monitor: External FHT and External Uterine Route of delivery: Laceration Description: Perineal - 1st Degree Delivery repair: vicryl (3-0) Specimen: Yes (placenta) Quantitative Blood Loss (ml): 50 Anesthesia type: Epidural Disposition: Floor Baby Date of : 06/01/22 Weeks of gestation at delivery: 39 Infant gender: Male presentation: vertex position: Right Occiput Anterior Placenta delivery description: Spontaneous Cord Vessel Description: 3 Vessels and Nuchal Cord (x 2 reduced) score one minute: 8 score five minutes: 9
--- NOTE | 2022-06-01 12:12 | PM.OBDSVD ---
DS: Admitting Diagnosis Discharge Date 06/02/22 Admitting Diagnosis IUP 39 IUGR oligohydramnios DS: Discharge Diagnosis Discharge Diagnosis (1) (normal spontaneous vaginal delivery): Code(s): O80 - Encounter for full-term uncomplicated delivery Status: Acute OB - DS: Summary OB Procedures : NST and Ultrasound OB Procedures Intrapartum: Spontaneous Vag Delivery OB Procedures: : None Peripartum Data Infant Delivery Method: Natural Vaginal Laceration Description: Perineal - 1st Degree complications: none Status at Discharge Functional status at discharge: independent ambulation Overall status at discharge: patient is progressing back to baseline Time Spent with Patient Time attestation: Total time spent providing and/or coordinating discharge services: DS: Data Data Completed and Pending Labs on day of discharge: Labs from last 24 hours 06/01/22 06/01/22 06/01/22 06:48 06:48 06:48 WBC 8.2 RBC 3.67 L Hgb 11.4 L Hct 34.5 L MCV 94.0 MCH 31.1 MCHC 33.0 RDW 13.4 Plt Count 161 MPV 11.0 H Immature Gran % (Auto) 2.1 H Neut % (Auto) 64.5 Lymph % (Auto) 25.0 [place] % (Auto) 6.2 Eos % (Auto) 1.8 Baso % (Auto) 0.4 Lymph # (Auto) 2.06 [place] # (Auto) 0.5 Eos # (Auto) 0.2 Baso # (Auto) 0.0 Abs Immat Gran (auto) 0.17 H Absolute Neuts (auto) 5.3 Absolute Nucleated RBC 0.0 Nucleated RBC % 0.0 RPR Pending Blood Type O Positive Antibody Screen Negative Discharge Plan Discharge Attending physician on discharge: Natalie Skelton Discharging Clinician: Natalie Skelton Anticipated Discharge Date/Time: 06/03/22 12:14 Patient Disposition: Home, Self-Care Activity: may shower Diet: regular Patient Instructions: Antibiotic Form Stand Alone Forms: General Discharge Information Follow-up/Referrals: Natalie Skelton MD [Physician] - 3 Weeks (Nexplanon at 3 weeks PP exam at 6 weeks) Discharge Medications: Continued buspirone 5 mg tablet 5 mg PO DAILY fluoxetine 10 mg capsule 20 mg PO DAILY ferrous sulfate 325 mg (65 mg iron) Tablet 325 mg PO DAILY PNV cmb#95-ferrous fumarate-FA [] 28 mg iron- 800 mcg Tablet 1 tablet PO DAILY omeprazole 40 mg capsule,delayed release(DR/EC) 40 mg PO DAILY Qty: 90 3RF Date of admission: 06/01/22 05:54 Primary Care Provider: Hair Yuan Admitting Provider: Natalie Skelton Attending physician on admission: Natalie Skelton Condition: Stable Care Plan Goals: plans Nexplanon-will place week 3
[2022-06-01] MEDS: OXYTOCIN 30 UNITS/NS 500 ML 30 UNITS/500 ML BAG 125 UNITS IV CONT (12:39)
[2022-06-01] MEDS: WITCH HAZEL 40 PADS 1 PAD TOPICAL (14:51)
--- NOTE | 2022-06-01 15:05 | OBPPTRN ---
Patient transferred to post room #291 via wheelchair. Support person present. Oriented to unit, room, information board, rooming in, admission packet and security measures. Patient verbalizes understanding.
[2022-06-01 16:07] LABS: Rapid Plasma Reagin Non-Reactive (NonReactive)
[2022-06-01] MEDS: IBUPROFEN 600 MG TABLET PO ×2 (17:57→23:17)
[2022-06-01] MEDS: DOCUSATE SODIUM 100 MG CAPSULE PO (17:57)
[2022-06-02 04:00] VITALS: BP 90/50; PULSE 120; RESP 36; TEMP 36.9; O2SAT 100
[2022-06-02] MEDS: ACETAMINOPHEN 325 MG TABLET 650 MG PO (04:44)
[2022-06-02 05:11] LABS: Hematocrit 32.4 % (37.0-47.0); Hemoglobin 10.6 g/dL (12.0-15.0)
[2022-06-02 07:35] VITALS: BP 100/63; PULSE 63; RESP 16; TEMP 36.7; O2SAT 97
--- NOTE | 2022-06-02 07:49 | PM.OBPNVD ---
OB - PN: Subj Subjective Date/time seen: 06/02/22 07:49 Patient comments: no complaints and pain well controlled baby status: doing well OB - PN: Obj Data Labs 06/02/22 04:49 Labs: Laboratory Results - last 24 hr 06/01/22 06/01/22 06/02/22 06:48 06:48 04:49 Hgb 10.6 L Hct 32.4 L RPR Non-reactive Antibody Screen Negative OB - PN A/P Plan day: 1 Plan: routine care, discharge home, follow up 6 weeks and other (3 weeks for Nexplanon) Comments: at 4am patient startled awake and RR and Pulse abnormal. Patient without complaint. No SOB. RR 16 and P 82 on my exam. Prefers dc home. Time Spent With Patient Time: Total time spent is greater than 50% in coordination of care (as documented) at patient's floor/unit and/or counseling patient: Exam Resp: Effort & Inspection: normal respiratory effort Auscultation: clear to auscultation bilaterally Cardio: Rate: regular rate Rhythm: regular rhythm : Bimanual exam- vagina & uterus: other (Uterus firm, nt @U)
[2022-06-02] MEDS: IBUPROFEN 600 MG TABLET PO ×2 (08:05→13:25)
[2022-06-02] MEDS: DOCUSATE SODIUM 100 MG CAPSULE PO (08:06)
[2022-06-02] MEDS: FLUoxetine HCL 10 MG CAPSULE 20 MG PO (08:06)
[2022-06-02] MEDS: busPIRone HCL 5 MG TABLET PO (08:06)
[2022-06-02] MEDS: WITCH HAZEL 40 PADS 1 PAD TOPICAL (08:10)
[2022-06-02 12:01] VITALS: BP 96/61; PULSE 84; RESP 16; TEMP 36.8; O2SAT 100
--- NOTE | 2022-06-02 12:48 | PC.NURSE ---
Patient viewed the discharge video Mother & Baby Care, The First Two Weeks . Patient was given the opportunity and encouraged to ask questions. Patient verbalized understanding of information shared and has been given the mother/baby guide for home reference.
--- NOTE | 2022-06-02 15:58 | WPDANLDPN2 ---
Anes-Prog Note L&D Date/Time: 06/02/22 15:58 Comfortable throughout: labor and delivery Neuraxial method: epidural Epidural/Spinal procedure site: clean & non-tender Neuro status: Neuro function grossly intact. Cardiovascular status: normal Respiratory status: normal Airway patency: baseline Mental status: baseline Post-Op hydration status: normal Vital Signs: Last Vital Signs Temp 36.8 C 06/02/22 12:01 Pulse 84 06/02/22 12:01 Resp 16 06/02/22 12:01 BP 96/61 L 06/02/22 12:01 Pulse Ox 100 06/02/22 12:01 O2 Del Method Room Air 06/02/22 13:00 Pain score (VAS): 2/10 I/O: Intake & Output 06/01/22 06/02/22 06/02/22 23:59 07:59 15:59 Intake Total 480 Balance 480 Post-procedural complaints: none Patient feedback: Patient satisfied with anesthetic care.
[2022-06-03 09:31] VITALS: BP 108/65; PULSE 71; RESP 20; TEMP 37.1; O2SAT 100
== END 2022-06-02 15:00 | disposition home or self-care (01) | DRG 560 ==
LOC: ANHLDR 12:15 → ANHOB2 06-02 08:28 → ANHLDR 06-05 11:17 → ANHOB2 06-05 11:17
PROVIDERS: Obstetrics & Gynecology Gynecology; Admitting Provider Advanced Practice Midwife; PCP Family Medicine; Visit Provider Advanced Practice Midwife
DX: O36.5930 Maternal care for other known or suspected poor fetal growth, third trimester, not applicable or unspecified (principal); O41.03X0 Oligohydramnios, third trimester, not applicable or unspecified; Z37.0 Single live birth; O69.81X0 Labor and delivery complicated by cord around neck, without compression, not applicable or unspecified; Z3A.38 38 weeks gestation of pregnancy; O70.0 First degree perineal laceration during delivery; O99.02 Anemia complicating childbirth; D64.9 Anemia, unspecified; O99.344 Other mental disorders complicating childbirth; F41.8 Other specified anxiety disorders
CPT/HCPCS: 36415; 85014; 85018; 85025; 86592; 86850; 86900; 86901; 88307; A9270; J2405; J2590; J2795; J7120

== ENCOUNTER 2022-10-13 22:36 | Emergency (ER) | payer OTHER, SELFPAY ==
[2022-10-13 23:08] VITALS: BP 119/76; PULSE 71; RESP 18; TEMP 36.9; O2SAT 100
[2022-10-14 00:10] LABS: Appearance Urine Clear (Clear); Bilirubin Urine Negative (Negative); Blood Urine Negative (Negative); Color Urine Yellow (Yellow); Glucose Urine UA Negative (Negative); Ketones Urine Trace mg/dL (Negative); Leukocyte Esterase Ur Negative LEU/UL (Negative); Nitrate Urine Negative (Negative); Protein Urine Negative (Negative); Specific Grav Ur 1.032 (1.001-1.035); Urobilinogen Urine 0.2 mg/dL (<2.0)
[2022-10-14 00:14] LABS: Add Urine Microscopic? NO
[2022-10-14 00:18] LABS: Acetaminophen < 10 ug/mL (10-30); Basophils Percent Auto 0.8 % (0.2-1.2); Eosinophils Absolute Auto 0.2 K/mm3 (0-0.3); Eosinophils Percent Auto 4.6 % (0-4.4); Ethanol < 10 mg/dL (<10); Hematocrit 37.3 % (37.0-47.0); Hemoglobin 12.1 g/dL (12.0-15.0); Immature Granulocyte Absolute 0.01 K/mm3 (0.00-0.031); Immature Granulocyte Percent A 0.2 % (0-0.5); Lymphocytes Percent Auto 54.5 % (18.3-44.2); Mean Corpuscular HGB Conc 32.4 g/dl (32-36); Mean Corpuscular Volume 92.3 fl (80-100); Mean Platelet Volume 11.7 fl (7.4-10.4); Monocytes Absolute Auto 0.3 K/mm3 (0.1-0.6); Monocytes Percent Auto 5.9 % (2.6-8.5); Neutrophils Absolute Auto 1.6 K/mm3 (1.3-6.7); Platelet Count Result 225 k/mm3 (150-375); Red Blood Count 4.04 M/mm3 (4.2-5.4); Red Cell Distribution Width 12.4 % (11.5-14.5); Salicylate < 1.0 mg/dL (2-20); White Blood Count 4.8 K/mm3 (4.5-10.0)
[2022-10-14 00:30] LABS: Amphetamine Screen Urine Negative (Negative); Barbiturate Screen Urine Negative (Negative); Benzodiazepines Screen Urine Negative (Negative); Cannabinoid Screen Urine Negative (Negative); Cocaine Screen Urine Negative (Negative); Methadone Screen Urine Negative (Negative); Opiate Screen Urine Negative (Negative); Phencyclidine Screen Urine Negative (Negative)
[2022-10-14 00:38] LABS: Alanine Aminotransferase 16 U/L (6-35); Albumin Level 4.3 g/dL (3.5-5.1); Alkaline Phosphatase 75 U/L (38-126); Anion Gap 4 mmol/L (8-16); Aspartate Amino Transferase 22 U/L (14-36); Bilirubin,Total 0.2 mg/dL (0.2-1.3); Blood Urea Nitrogen 16 mg/dL (7-17); Calcium 9.3 mg/dL (8.4-10.2); Carbon Dioxide 29 mmol/L (22-30); Chloride 104 mmol/L (98-107); Estimated CRCL calculation 70 ml/min; Estimated Glomerular Filt Rate > 60; Glucose 88 mg/dL (65-110); Potassium 4.1 mmol/L (3.4-5.0); Sodium 137 mmol/L (137-145)
[2022-10-14 00:43] LABS: SARS-CoV-2 RNA PCR Negative (Negative)
--- NOTE | 2022-10-14 01:01 | ED.PSYCH ---
HPI - Psych General Chief Complaint: Psychiatric Symptoms <PASQUALE Plaza Last Filed: 10/14/22 03:33> Stated Complaint: 4 month <PASQUALE Plaza Last Filed: 10/14/22 03:33> Time Seen by Provider: 10/13/22 23:27 <PASQUALE Plaza Last Filed: 10/14/22 03:33> Source: patient <PASQUALE Plaza Last Filed: 10/14/22 03:33> Mode of arrival: ambulatory <PASQUALE Plaza Last Filed: 10/14/22 03:33> Limitations: no limitations <PASQUALE Plaza Last Filed: 10/14/22 03:33> History of Present Illness HPI Narrative: Patient is a 32-year-old female who presents to the ED with report of depression and suicidal ideation. Patient reports previous diagnoses of depression, anxiety, bipolar disorder, eating disorder. She had a child 4 months ago and reports having increased depression over the last 2 months. She states she feels fatigued, has no energy, and just feels like she has no will to live. She denies feeling unsafe around her children and states she is able to take care of her children, just not herself. She states she has no energy to do the things that she knows she needs to do. She is currently taking fluoxetine and has Xanax as needed. She does not currently see a psychiatrist or counselor. She has never been psychiatrically hospitalized before, but she states she feels like she needs to currently. She has had intermittent suicidal thoughts over the last few weeks, increasing in frequency, thoughts that she would be better off . She states she has had occasional thoughts of wanting to shoot herself or drive off a tsering. Denies ever harming herself in the past. Denies any homicidal ideation. Denies significant AVH. <PASQUALE Plaza Last Filed: 10/14/22 03:33> Related Data Home Medications: Home Medications Medication Instructions Recorded Confirmed buspirone 5 mg tablet 5 mg PO DAILY 02/06/22 06/01/22 fluoxetine 10 mg capsule 20 mg PO DAILY 02/06/22 06/01/22 ferrous sulfate 325 mg (65 mg 325 mg PO DAILY 04/19/22 04/19/22 iron) tablet vit no.95-ferrous 1 tablet PO DAILY 04/19/22 06/01/22 fumarate 28 mg-folic acid 800 mcg tablet () <Crystal Menchaca PA-C - Last Filed: 10/14/22 03:33> Allergies/Adverse Reactions: Allergies Allergy/AdvReac Type Severity Reaction Status Date / Time No Known Allergies Allergy Unknown Verified 10/13/22 23:20 <Crystal Menchaca PA-C - Last Filed: 10/14/22 03:33> Review of Systems Review of Systems: CONSTITUTIONAL: Denies fever, chills, or sweats. CARDIOVASCULAR: Denies chest pain, palpitations, or edema. RESPIRATORY: Denies cough or dyspnea. GASTROINTESTINAL: Denies abdominal pain, nausea, vomiting. MUSCULOSKELETAL: Denies back pain, joint pain, or myalgia. NEUROLOGIC: Denies headache, numbness, or weakness. PSYCHIATRIC: See HPI. <Crystal Menchaca PA-C - Last Filed: 10/14/22 03:33> All systems reviewed & are unremarkable except as noted in HPI and below <Crystal Menchaca PA-C - Last Filed: 10/14/22 03:33> [facility] Past Medical History Medical History: Medical History Anxiety Bipolar disorder Depression Dysphagia Eating disorder IUP (intrauterine ), incidental <Crystal Menchaca PA-C - Last Filed: 10/14/22 03:33> Family History Family History: Family History Father Hypertension Sibling Asthma <Crystal Menchaca PA-C - Last Filed: 10/14/22 03:33> Social History Social History: Social History Smoking status: Never smoker Tobacco type: cigarettes Second hand tobacco smoke exposure: Yes Alcohol intake: former Substance use: never Substance use type: does not use Lack
== END 2022-10-14 06:36 | disposition home or self-care (01) ==
PROVIDERS: Physician Assistant; Emergency Provider Emergency Medicine; PCP Obstetrics & Gynecology Gynecology
DX: R45.851 Suicidal ideations (principal); F53.0 Postpartum depression; Z20.822 Contact with and (suspected) exposure to COVID-19
CPT/HCPCS: 36415; 80053; 80307; 81003; 81025; 84443; 85025; 87635; 99284

== ENCOUNTER 2023-04-26 10:09 | Emergency (ER) | payer OTHER, SELFPAY ==
[2023-04-26 10:26] VITALS: BP 100/70; PULSE 91; RESP 18; TEMP 36.3; O2SAT 100
--- NOTE | 2023-04-26 10:45 | ED.URI ---
HPI - URI/Sore Throat General Chief Complaint: Upper Respiratory Infection Stated Complaint: fatigue,chills,sore throat,sinus inf Time Seen by Provider: 04/26/23 10:30 Source: patient Mode of arrival: ambulatory Limitations: no limitations History of Present Illness HPI Narrative: Carola is a 32-year-old female patient presenting to the clinic today with complaints of fatigue, chills, sore throat, nasal congestion, and sinus pain. She reports the symptoms have been going on for about 15 days. Denies any known fever recently. Does have a lot of pressure in her maxillary and frontal sinuses. Reports green nasal discharge. MD elicited complaint: cough, sore throat, rhinorrhea, nasal congestion and sinus pain Related Data Home Medications Medication Instructions Recorded Confirmed buspirone 5 mg tablet 5 mg PO DAILY 02/06/22 04/26/23 fluoxetine 10 mg capsule 20 mg PO DAILY 02/06/22 04/26/23 Allergies Allergy/AdvReac Type Severity Reaction Status Date / Time No Known Allergies Allergy Unknown Verified 04/26/23 10:42 Review of Systems Review of Systems: Pertinent positives per HPI. Patient denies any fever, rash, headache, visual changes, dizziness, shortness of breath, chest pain, palpitations, nausea, vomiting, diarrhea, constipation, abdominal pain, or any urinary issues. PMFSH Past Medical History Medical History Anxiety Bipolar disorder Depression Dysphagia Eating disorder IUP (intrauterine ), incidental Family History Family History Father Hypertension Sibling Asthma Social History Social History Smoking status: Never smoker Tobacco type: cigarettes Second hand tobacco smoke exposure: Yes Alcohol intake: former Substance use: never Substance use type: does not use Lack of Transportation: No Lack of Food: Never True Current Housing: I Have Housing Concerned About Future Housing: No Difficulty Paying Gas/Electric Bills: No Difficulty Paying for Meds: No Currently Unemployed: No Education: Associate Degree Difficulty w/ Childcare or Family Care: No Living arrangements: with family Gender identity (if verbalized by the patient): Female Spiritual care concerns: No Comments At the time of my signature, I reviewed and agree with the nursing past medical, surgical, social, and family history. There is no relevant family history pertinent to the patient complaint. Exam Narrative: General: Well-developed, thin, in no apparent distress Head: Normocephalic, atraumatic Eyes: Pupils equally round and reactive to light bilaterally, EOM intact, sclera and conjunctive clear, no discharge, lids normal Ears: TMs intact and congested, ear canals clear, no drainage, grossly hearing normal. Nose: Nares patent, green nasal discharge, model inflammation, maxillary and frontal sinus tenderness. Mouth: Oral pharynx red without lesions or masses, good dentition, MMM. Postnasal drip Neck: Supple, trachea midline, no enlargement of anterior or posterior cervical nodes, no thyroid masses or goiter palpable. Cardio: Regular rate and rhythm, s1 and s2 normal, no murmur appreciated. Resp: Clear to auscultation bilaterally, no rhonchi, rales, wheezing or rubs Course Course Emergency Course: Portions of this record may have been created with voice recognition software. Level of Care: Express Care Visit Vital Signs Vital signs: Vital Signs Temperature 36.3 C L 04/26/23 10:26 Pulse Rate 91 04/26/23 10:26 Respiratory Rate 18 04/26/23 10:26 Blood Pressure 100/70 04/26/23 10:26 Pulse Oximetry 100 04/26/23 10:26 Oxygen Delivery Room Air 04/26/23 10:26 Temperature 36.3 C L 04/26/23 10:26 Pulse Rate 91 04/26/23 10:26 Respiratory Rate 18 04/26/23 10:26 Blood Pre
== END 2023-04-26 10:50 | disposition home or self-care (01) ==
PROVIDERS: Emergency Provider Nurse Practitioner Family; PCP Family Medicine
DX: J01.90 Acute sinusitis, unspecified (principal); B96.89 Other specified bacterial agents as the cause of diseases classified elsewhere; F41.9 Anxiety disorder, unspecified; F32.A Depression, unspecified; Z79.899 Other long term (current) drug therapy
CPT/HCPCS: 99213; G0463

== ENCOUNTER 2023-06-30 20:32 | Emergency (ER) | payer BC, OTHER, SELFPAY ==
[2023-06-30] VITALS (7 sets, daily range): BP systolic 108–130; BP diastolic 71–89; PULSE 61–99; RESP 18; TEMP 36.4; O2SAT 99–100
--- NOTE | ~2023-06-30 | XR_ITS ---
EXAMINATION: XR chest 2V 06/30/2023 22:23 INDICATION: Chest pain. Reflux. PROCEDURE: 2 view chest COMPARISON: 02/15/2021 FINDINGS: The lungs are clear. The cardiomediastinal silhouette is within normal limits. There are no pleural effusions. There is no pneumothorax suspected. IMPRESSION: 1: NO ACUTE CARDIOPULMONARY DISEASE. Reviewed, dictated and finalized at location A. LEVELER
--- NOTE | 2023-06-30 22:14 | ECG_ITS ---
Measurements Intervals [place] Rate: 58 P: 59 NE: 160 QRS: 66 QRSD: 94 T: 29 QT: 418 QTc: 412 Interpretive Statements SINUS BRADYCARDIA WITH SINUS ARRHYTHMIA BORDERLINE ECG NO PREVIOUS ECG AVAILABLE FOR COMPARISON Electronically Signed On 07-01-2023 18:17:22 [employer] by Luan Almanzar M.D.
[2023-06-30] MEDS: BELLADONNA ALK/PHENOB ELIX 10 ML, MAG HYDROX/ALUMINUM HYD/SIMETH 30 ML, LIDOCAINE HCL 2... PO (22:33)
[2023-06-30] MEDS: FAMOTIDINE 20 MG/2 ML VIAL IV PUSH (22:33)
--- NOTE | 2023-06-30 22:34 | ED.GENADULT ---
HPI - General Adult General Chief complaint: Unspecified Stated complaint: BELCHING/SOB Time Seen by Provider: 06/30/23 21:55 History of Present Illness HPI narrative: 33-year-old female with history of bipolar disorder, anxiety, dysphagia and GERD presents to emergency department for anxiety and reflux. Patient states about 1-2 hours prior to arrival, she was eating chips and case so and felt reflex. States she had a burping attack that has since resolved. States during the burping attack, she felt like she cannot breathe which prompted an anxiety attack. Reported chest pain and dyspnea which has since resolved. States she took Xanax with improvement. States she was treated for 40 mg omeprazole years ago but has been off of the medication for approximately 1 year. She noted it provided improvement while she was on it. She had an EGD performed by Dr. Jain on 10/12/20 which showed a normal EGD. Denies nausea, vomiting, diarrhea, abdominal pain, current chest pain or shortness of breath, fever. Denies melena or hematochezia. Related Data Home Medications Medication Instructions Recorded Confirmed buspirone 5 mg tablet 5 mg PO DAILY 02/06/22 04/26/23 fluoxetine 10 mg capsule 20 mg PO DAILY 02/06/22 04/26/23 Allergies Allergy/AdvReac Type Severity Reaction Status Date / Time No Known Allergies Allergy Unknown Verified 04/26/23 10:42 Review of Systems Review of Systems: CONSTITUTIONAL: Denies fever, chills, or sweats. EYES: Denies visual changes, redness, or discharge. ENT: Denies rhinorrhea, congestion, sore throat, or otalgia. CARDIOVASCULAR: See HPI RESPIRATORY: Denies cough or dyspnea. GASTROINTESTINAL: See HPI GENITOURINARY: Denies dysuria or hematuria. SKIN: Denies rash or itching. MUSCULOSKELETAL: Denies back pain, joint pain, or myalgia. NEUROLOGIC: Denies headache, numbness, or weakness. PSYCHIATRIC: Denies anxiety or depression. [facility] Past Medical History Medical History Anxiety Bipolar disorder Depression Dysphagia Eating disorder IUP (intrauterine ), incidental Family History Family History Father Hypertension Sibling Asthma Social History Social History Smoking status: Never smoker Tobacco type: cigarettes Second hand tobacco smoke exposure: Yes Alcohol intake: former Substance use: never Substance use type: does not use Lack of Transportation: No Lack of Food: Never True Current Housing: I Have Housing Concerned About Future Housing: No Difficulty Paying Gas/Electric Bills: No Difficulty Paying for Meds: No Currently Unemployed: No Education: Associate Degree Difficulty w/ Childcare or Family Care: No Living arrangements: with family Gender identity (if verbalized by the patient): Female Spiritual care concerns: No Exam Narrative: GENERAL: Well-appearing, well-nourished, and in no acute distress. Patient resting comfortably in exam bed. She is pleasant and conversational. HEAD: Normocephalic, atraumatic. EYES: PERRLA and EOMI. ENT: Nares clear, no rhinorrhea or epistaxis. Mucous membranes moist. NECK: Supple. CHEST: Clear to auscultation. No respiratory distress. HEART: Regular rate and rhythm. No murmur heard. Normal peripheral pulses. ABDOMEN: Soft, nontender, nondistended, normal active bowel sounds. No guarding, rebound or rigidity. EXTREMITIES: Normal range of motion. No edema. SKIN: Warm, dry, no rash. NEURO: No focal deficits. Alert and oriented x3 Course Vital Signs Vital signs: Vital Signs Temperature 97.6 F 06/30/23 20:46 Pulse Rate 99 06/30/23 20:46 Respiratory Rate 18 06/30/23 20:46 Blood Pressure 126/89 06/30/23 20:46 Pulse Oximetry 100 06/30/23 20:46 Oxygen Delivery Room Air 06/30/23 20:46 Temper
[2023-06-30 22:38] LABS: Basophils Percent Auto 1.1 % (0.2-1.2); Eosinophils Absolute Auto 0.1 K/mm3 (0-0.3); Eosinophils Percent Auto 2.9 % (0-4.4); Hematocrit 35.3 % (37.0-47.0); Hemoglobin 11.3 g/dL (12.0-15.0); Lymphocytes Absolute Auto 1.97 K/mm3 (0.9-3.2); Mean Corpuscular Volume 87.4 fl (80-100); Monocytes Absolute Auto 0.2 K/mm3 (0.1-0.6); Neutrophils Absolute Auto 1.5 K/mm3 (1.3-6.7); Platelet Count Result 269 k/mm3 (150-375); Red Blood Count 4.04 M/mm3 (4.2-5.4); Red Cell Distribution Width 13.2 % (11.5-14.5); White Blood Count 3.8 K/mm3 (4.5-10.0)
[2023-06-30 22:53] LABS: Alanine Aminotransferase 14 U/L (6-35); Albumin Level 4.5 g/dL (3.5-5.1); Alkaline Phosphatase 71 U/L (38-126); Anion Gap 4 mmol/L (8-16); Aspartate Amino Transferase 24 U/L (14-36); Bilirubin,Total 0.2 mg/dL (0.2-1.3); Blood Urea Nitrogen 13 mg/dL (7-17); Calcium 9.8 mg/dL (8.4-10.2); Carbon Dioxide 26 mmol/L (22-30); Chloride 109 mmol/L (98-107); Estimated CRCL calculation 82 ml/min; Estimated Glomerular Filt Rate > 60; Glucose 105 mg/dL (65-110); Potassium 3.4 mmol/L (3.4-5.0); Sodium 139 mmol/L (137-145)
[2023-06-30 23:01] LABS: Troponin I < 0.012 ng/mL (0.000-0.034)
== END 2023-07-01 00:12 | disposition home or self-care (01) ==
PROVIDERS: Emergency Provider Physician Assistant; PCP Family Medicine
DX: K21.9 Gastro-esophageal reflux disease without esophagitis (principal); F41.9 Anxiety disorder, unspecified; F31.9 Bipolar disorder, unspecified; Z77.22 Contact with and (suspected) exposure to environmental tobacco smoke (acute) (chronic); R00.1 Bradycardia, unspecified
CPT/HCPCS: 36415; 71046; 80053; 84484; 85025; 93005; 96374; 99284; A9270

== ENCOUNTER 2023-09-17 14:25 | Outpatient (CLI) | payer BC, OTHER, SELFPAY ==
[2023-09-17 14:49] LABS: Basophils Absolute Auto 0.1 K/mm3 (0.0-0.1); Basophils Percent Auto 1.1 % (0.2-1.2); Eosinophils Absolute Auto 0.2 K/mm3 (0-0.3); Eosinophils Percent Auto 5.4 % (0-4.4); Immature Granulocyte Absolute 0.01 K/mm3 (0.00-0.031); Immature Granulocyte Percent A 0.2 % (0-0.5); Immature Platelet Fraction Pct 11.8 % (0.9-11.2); Lymphocytes Absolute Auto 2.67 K/mm3 (0.9-3.2); Lymphocytes Percent Auto 60.1 % (18.3-44.2); Mean Corpuscular Hemoglobin 27.5 pg (26-34); Mean Corpuscular Volume 91.5 fl (80-100); Mean Platelet Volume 11.8 fl (7.4-10.4); Monocytes Absolute Auto 0.3 K/mm3 (0.1-0.6); Monocytes Percent Auto 6.5 % (2.6-8.5); Neutrophils Absolute Auto 1.2 K/mm3 (1.3-6.7); Neutrophils Percent Auto 26.7 % (45.5-73.1); Platelet Count Result 179 k/mm3 (150-375); Red Blood Count 4.37 M/mm3 (4.2-5.4); Red Cell Distribution Width 13.2 % (11.5-14.5); White Blood Count 4.4 K/mm3 (4.5-10.0)
[2023-09-17 15:29] LABS: Platelet Estimate Adequate (Adequate); Schistocytes None Seen
[2023-09-17 16:58] LABS: Alanine Aminotransferase 15 U/L (6-35); Albumin Level 5.2 g/dL (3.5-5.1); Alkaline Phosphatase 76 U/L (38-126); Anion Gap 11 mmol/L (4-12); Aspartate Amino Transferase 27 U/L (14-36); Bilirubin,Total 0.4 mg/dL (0.2-1.3); Blood Urea Nitrogen 12 mg/dL (7-17); Calcium 10.1 mg/dL (8.4-10.2); Carbon Dioxide 24 mmol/L (22-30); Chloride 107 mmol/L (98-107); Estimated Glomerular Filt Rate > 60; Glucose 83 mg/dL (65-110); Lactate Dehydrogenase 165 U/L (120-246); Potassium 4.1 mmol/L (3.4-5.0); Sodium 142 mmol/L (137-145)
[2023-09-17 17:00] LABS: Iron 82 ug/dL (37-170)
[2023-09-17 17:11] LABS: Percent Iron Saturation 20 % (20-50)
[2023-09-17 17:33] LABS: Ferritin 7.01 ng/mL (6.24-137)
[2023-09-17 22:16] LABS: Folic Acid 16.1 ng/mL (2.76->20)
[2023-09-19 12:52] LABS: Hematocrit 39.5 % (35.0-45.0); Hemoglobin 12.2 g/dL (11.7-15.5); MCH 27.1 pg (27.0-33.0); MCV 87.6 fL (80.0-100.0); RDW 13.1 % (11.0-15.0); Red Blood Cell Count 4.51 Million/uL (3.80-5.10)
[2023-09-21 11:43] LABS: Methylmalonic Acid 91 nmol/L (87-318)
[2023-09-26 13:08] LABS: Soluble Transferrin Receptor 1.67 mg/L (0.76-1.76)
== END 2023-09-17 14:26 | disposition home or self-care (01) ==
LOC: ANHLAB 14:26
PROVIDERS: Nurse Practitioner Family; PCP Family Medicine; Visit Provider Internal Medicine Hematology & Oncology
DX: D50.8 Other iron deficiency anemias (principal); D56.9 Thalassemia, unspecified
CPT/HCPCS: 36415; 80053; 82607; 82728; 82746; 83021; 83540; 83550; 83615; 83921; 84238; 85025; 85055

== ENCOUNTER 2023-12-29 09:30 | Outpatient (CLI) | payer BC, OTHER, SELFPAY ==
--- NOTE | ~2023-12-29 | XR_ITS ---
EXAMINATION: XR UGIAC w barium swallow DATE: 12/29/2023 11:11 INDICATION: Gastroesophageal reflux without esophagitis. TECHNIQUE: The patient drank thick barium, gas-producing crystals, and thin barium. Fluoroscopy of th e esophagus, stomach, and proximal small bowel was performed. Fluoroscopy exposure time was 0.6 minut es. The total number of images was 248. Total dose-area product was 0.5 Gy-cm^2. COMPARISON: CT abdomen and pelvis 07/08/2017 FINDINGS: There is no mass or stricture of the esophagus. Esophageal motility is normal. There is no hiatal hernia. There was no gastroesophageal reflux with provocative maneuvers. The stomach and proxi mal small bowel show normal folding patterns. IMPRESSION: 1. Normal upper gastrointestinal series and barium swallow. Reviewed, dictated and finalized at location A.
== END 2023-12-29 09:31 | disposition home or self-care (01) ==
PROVIDERS: PCP Family Medicine; Visit Provider Nurse Practitioner Family
DX: K21.9 Gastro-esophageal reflux disease without esophagitis (principal)
CPT/HCPCS: 74246

== ENCOUNTER 2025-04-02 22:19 | Emergency (ER) | payer BC, SELFPAY ==
[2025-04-02 22:22] VITALS: BP 134/81; PULSE 83; RESP 18; TEMP 36.8; O2SAT 99
--- OUTSIDE RECORDS SUMMARY | 2025-04-02 22:22 | XMS_ITS | Clinical Summary ---
Author Organization [facility] Address [address] [place] [address] Care Team Providers Care Horse Racer Name Role Phone Hair Yuan MD Primary Care Provider [phone] Allergies No known active allergies Medications famotidine (PEPCID) 20 MG tablet Take 1 tablet (20 mg total) by mouth daily. Active omeprazole (PRILOSEC) 40 MG capsule Take 1 capsule (40 mg total) by mouth daily. Active FLUoxetine (PROZAC) 10 MG tablet Take 1 tablet (10 mg total) by mouth daily. Active ferrous sulfate EC 325 (65 Fe) MG tablet Take 1 tablet by mouth daily. Active Social History Tobacco Use Types Packs/Day Years Used Date Smoking Tobacco: Former Cigarettes Smokeless Tobacco: Never Tobacco Cessation:Counseling Given: Not Answered Alcohol Use Standard Drinks/Week Comments Never 0 (1 standard drink = 0.6 oz pur e alcohol) Comments Unknown Sex and Gender Information Value Date Recorded Sex Assigned at Not on file Legal Sex Female 7:58 PM CDT Gender Identity Not on file Sexual Orientation Not on file Last Filed Vital Signs Vital Sign Reading Time Taken Comments Blood Pressure 121/81 12/04/2023 8:16 PM CDT Pulse 80 12/04/2023 8:16 PM CDT Temperature 37 C (98.6 F) 12/04/2023 8:16 PM CDT Respiratory Rate 18 12/04/2023 8:16 PM CDT Oxygen Saturation 100% 12/04/2023 8:16 PM CDT Inhaled Oxygen Concentration - - Weight 49.1 kg (108 lb 3.9 oz) 12/04/2023 6:26 P M CDT Height 160 cm (5' 3) 12/04/2023 6:26 PM CDT Body Mass Index 19.17 12/04/2023 6:26 PM CDT Plan of Treatment Health Maintenance Due Date Last Done Comments Cervical Cancer Screening Pap Smear (Age 30 to 64) Every 3 Years 1991 Annual Physical 1994 Hepatitis C 2009 HPV Vaccines (1 - 3-dose SCDM series) 2018 Cervical Cancer Screening Pap with HPV Testing (Age 30 to 64) Every 5 Years 2021 Cervical Cancer Screening with HPV 2021 COVID-19 Vaccine ( season) 2025 01/27/2021, 12/15/2020 Influenza Adult (#1) 2025 07/05/2021 DTaP, Tdap and Td Vaccines (7 - Td or Tdap) 07/06/2025 07/07/2015, 11/19/2003, 01/29/1997, Additional history exists Hepatitis B Vaccines Completed 01/29/1997, 08/08/1996, 06/16/1996, Additional history exists Hepatitis A Vaccines Completed 04/24/2016, 08/16/2015, 12/27/2013 Meningococcal B Vaccine Aged Out No l onger eligible based on patient's age to complete this topic Meningococcal Vaccine Aged Out No sha jody eligible based on patient's age to complete this topic Pneumococcal Vaccine: Pediatrics (0 to 5 Years) and At-Risk Patients (6 to 49 Years) Aged Out No longer eligible based on patient's age to complete this topic RSV Immunizations Under 20 Months Aged Out No longer eligible based on patient's age to complete this topic Insurance [facility] Care Teams Horse Racer Relationship Specialty Start Date End Date Hair Yuan MD [address] [place] [id number] PCP - General FAMILY PRACTICE 12/04/23
--- OUTSIDE RECORDS SUMMARY | 2025-04-02 22:22 | XMS_ITS | Clinical Summary ---
Author Organization [facility] Address [address] [place] [address] Care Team Providers Care Director Selection And Administration Name Role Phone Hair Yuan MD Primary Care Provider [phone] [facility],non-owned Affiliates and Associated Physician Practices is amultiple site organization consisting of ambulatory clinics and hospital sitesin [place], [place], [place] and [place]. This disclosure is being madepursuant to the Care Everywhere program and may not contain all information available regarding this patient. Last updated 18.[facility] Allergies No known active allergies Medications * Be aware that medications may not be up to date on this document. Alwaysverify current medications with the patient. busPIRone (BUSPAR) 5 MG tablet Take 5 mg by mouth once Active FLUoxetine (PROZAC) 10 MG tablet Take 1 (one) tablet by mouth once daily Active omeprazole (PRILOSEC) 40 MG capsule Take 40 mg by mouth daily before breakfast Active Active Problems Problem Noted Date Diagnosed Date Lipoma of torso 07/28/2021 Comments Yes Immunizations Immunization Administration Dates Next Due INFLUENZA VACCINE 07/14/2021 Family History Medical History Relation Name Comments None Known Father None Known Mother Relation Name Status Comments Father Mother Social History Tobacco Use Types Packs/Day Years Used Date Smoking Tobacco: Never Smokeless Tobacco: Never Alcohol Use Standard Drinks/Week Comments Not Currently 0 (1 standard drink = 0.6 oz pur e alcohol) Comments Yes Sex and Gender Information Value Date Recorded Sex Assigned at Not on file Legal Sex Female 12:11 PM CDT Gender Identity Not on file Sexual Orientation Not on file Last Filed Vital Signs Vital Sign Reading Time Taken Comments Blood Pressure 114/75 10/24/2021 3:49 PM CDT Pulse 70 10/24/2021 3:49 PM CDT Temperature 36.7 C (98 F) 10/24/2021 3:49 PM CDT Respiratory Rate 75 10/24/2021 3:49 PM CDT Oxygen Saturation 100% 10/24/2021 3:49 PM CDT Inhaled Oxygen Concentration - - Weight 43.1 kg (95 lb) 10/24/2021 12:02 PM CDT Height 160 cm (5' 3) 10/24/2021 12:02 PM CDT Body Mass Index 16.83 10/24/2021 12:02 PM CDT Plan of Treatment Health Maintenance Due Date Last Done Comments HIV SCREENING 2006 HEPATITIS C SCREENING 05/19/2009 DTAP/TDAP/TD VACCINES (1 - Tdap) 2010 HEPATITIS B VACCINE (1 of 3 - 19+ 3-dose series) 2010 Cervical Cancer Screening 2012 PAP SMEAR 2012 HPV VACCINE (1 - 3-dose SCDM series) 2018 PAP with HPV 2021 DEPRESSION SCREENING 05/07/2024 COVID-19 VACCINE (1 - 2024-2 6 season) 2025 INFLUENZA VACCINE (#1) 2025 07/14/2021 ZOSTER VACCINE (1 of 2) 2041 Respiratory Syncytial Virus (RSV) Vaccine Pt: or over 60 yrs (1 - 1-dose 75+ series) 2066 HIB VACCINE Aged Out No longer eligi ble based on patient's age to complete this topic MENINGOCOCCAL (Group B) VACC INE SHARED DECISION-MAKING Aged Out No longer eligibl e based on patient's age to complete this topic MENINGOCOCCAL GROUPS A/C/Y/W VACCINE Aged Out No longer eligible b ased on patient's age to complete this topic PNEUMOCOCCAL VACCINE Aged Out No long er eligible based on patient's age to complete this topic Insurance [facility] Care Teams Director Selection And Administration Relationship Specialty Start Date End Date Hair Yuan MD [address] [place] [address] PCP - General 07/25/21
--- OUTSIDE RECORDS SUMMARY | 2025-04-02 22:22 | XMS_ITS | Clinical Summary ---
Author Organization [facility] Address [address] [place] [address] Care Team Providers Care Law Enforcement Director Name Role Phone Hair Yuan MD Primary Care Provider [phone] Traci [place] DPM Unavailable [phone] Allergies No known active allergies Medications multivitamin capsule Take 1 capsule by mouth daily Active oxyCODONE-aceta minophen (PERCOCET) 5-325 mg per tabletIndicatio ns:Pain Take 1 tablet by mouth every 4 (four) hours as needed for pain 30 tablet 08/27/2020 Active omeprazole (PriLOSEC) 40 mg capsule Take 1 capsule (40 mg total) by mouth daily Active linaCLOtide (LINZESS) 145 mcg capsule 1 capsule (145 mcg total) daily Active Active Problems No known active problems Surgical History Surgery Date Site/Laterality Comments UPPER GASTROINTESTINAL ENDOSCOPY Medical History Medical History Date Comments Anxiety Depression Bipolar disorder Dysphagia Eating disorder Chronic constipation GERD (gastroesophageal reflux disease) Social History Tobacco Use Types Packs/Day Years Used Date Smoking Tobacco: Some Days Vaping Smokeless Tobacco: Never Tobacco Cessation:Ready to Q uit: Not Asked; Counseling Given: Not Answered AUDIT-C Answer Date Recorded Q1: How often do you have a drink containing alc ohol? Monthly or less 08/24/2020 Q2: How many drinks containi ng alcohol do you have on a typical day when you are drinking? 3 or 4 08/24/2020 Frequency of Binge Drinking Not on file 08/06 Personal Safety Answer Date Recorded Have you ever been in or are you currently in a harmful physical or emotional relationship or is someone making you feel afraid or unsafe? Denies 09/18/2023 Comments No Sex and Gender Information Value Date Recorded Sex Assigned at Not on file Legal Sex Female 10:57 AM CDT Gender Identity Not on file Sexual Orientation Not on file Last Filed Vital Signs Vital Sign Reading Time Taken Comments Blood Pressure 110/71 09/18/2023 1:13 PM CDT Pulse 83 09/18/2023 1:13 PM CDT Temperature 37.3 C (99.1 F) 08/27/2020 4:20 PM CDT Respiratory Rate 15 09/18/2023 1:13 PM CDT Oxygen Saturation 96% 08/27/2020 4:20 PM CDT Inhaled Oxygen Concentration - - Weight 41.6 kg (91 lb 11.4 oz) 08/27/2020 10:48 AM CDT Height 160 cm (5' 3) 08/27/2020 10:48 AM CDT Body Mass Index 16.25 08/27/2020 10:48 AM CDT Plan of Treatment Health Maintenance Due Date Last Done Comments Cervical Cancer Screening 1991 Depression Screening 1991 Hepatitis C Screening 1991 Varicella Vaccines (1 of 2 - 13+ 2-dose series) 2004 Hepatitis B Screening 2009 Regular Well Visit/Exam 18-64 2009 Pneumococcal vaccine <65 (1 of 2 - PCV) 2010 HPV Vaccines (1 - 3-dose SCDM series) 2018 Influenza Vaccine (#1) 2025 07/14/2021 DTaP/Tdap/Td Vaccine (2 - Td or Tdap) 07/06/202506/2015 Medical Devices Implanted Type Area Pharmacy Clinical Specialist Device Identifier Shelf Expiration Date Model / Serial / Lot Depuy Mitek [id number] Quickanchor Plus Ethibond 0 Os-2 Mini [place] Suture - [id number] Implanted:Qty: 1 on 08/27/2020 by Traci [place] DPM at [facility] Right: Foot Depuy Mitek 05/06/2024 [id number] / / [id number] [employer] Asnis 2mm 14mm 6mm Self Cut Cannulated Color Coded Low Profile - [id number] Implanted:Qty: 1 on 08/27/2020 by Traci [place] DPM at [facility] Right: Foot [employer] / / [employer] Asnis 2mm 12mm 5mm Self Cut Cannulated Color Coded Low Profile - [id number] Implanted:Qty: 1 on 08/27/2020 by Traci [place], REJIM at [facility] Right: Foot [employer] / / Depuy Mitek [id number] Quickanchor Plus Ethibond 0 Os-2 Mini [place] Suture - [id number] Implanted:Qty: 1 on 08/27/2020 by Traci [place] DPM at [facility] Right: Foot [employer] 05/06/2024 [id number] / / [id number] Insurance [facility] [place] [address] [place] [address] [facility] Care Teams Law Enforcement Director Relationship Specialty Start Date End Date Hair Yuan MD PCP - General 08/26/20 Traci [place] DPBruno [address] [place] [id number] Consulting Physician Foot and Ankle Surg 08/27/20
[2025-04-02 22:43] VITALS: BP 144/95; O2SAT 100
[2025-04-02 22:46] VITALS: BP 126/89; O2SAT 98
[2025-04-02] MEDS: ONDANSETRON INJ 4 MG/2 ML VIAL IV PUSH (22:51)
[2025-04-02] MEDS: FAMOTIDINE 20 MG/2 ML VIAL IV PUSH (22:51)
--- NOTE | 2025-04-02 22:53 | ED_ITS ---
HPI - Abdominal Pain General Chief Complaint: Abdominal Pain Stated Complaint: belching Time Seen by Provider: 04/02/25 22:33 Source: patient Mode of arrival: ambulatory Limitations: no limitations History of Present Illness HPI narrative: This is a 34-year-old female that presents to the emergency department for reflux. Reports she has not been eating well the last couple of days. She does have history of reflux. She usually controls this with diet. Tonight she was having recurrent belching. Reflux symptoms were unrelieved by [id number] medications which prompted her to be seen. Related Data Home Medications ?Medication ?Instructions ?Recorded ?Confirmed ?Last Taken ?Type fluoxetine 10 mg capsule 10 mg PO DAILY 01/03/2412/06 Unknown History Allergies Allergy/AdvReac Type Severity Reaction Status Date / Time No Known Allergies Allergy Unknown Verified 04/02/25 22:29 Review of Systems 2 Review of Systems: All systems reviewed & are unremarkable except as noted in HPI and below PMFSH Past Medical History Medical History Anemia Anxiety Bipolar disorder Depression Dysphagia Eating disorder Gastroesophageal reflux disease IUP (intrauterine ), incidental Surgical History Surgical History History of bunionectomy Family History Family History Father Hypertension Sibling Asthma Grandparent Diabetes mellitus Social History Social History Smoking status: Never smoker Tobacco type: cigarettes Second hand tobacco smoke exposure: Yes Alcohol intake: former Substance use: never Substance use type: does not use Lack of Transportation: No Lack of Food: Never True Current Housing: I Have Housing Concerned About Future Housing: No Difficulty Paying Gas/Electric Bills: No Difficulty Paying for Meds: No Currently Unemployed: No Education: Associate Degree Difficulty w/ Childcare or Family Care: No Living arrangements: with family Gender identity (if verbalized by the patient): Female Spiritual care concerns: No Exam 2 Narrative: GENERAL: Well-appearing, well-nourished, and in no acute distress. HEAD: Normocephalic, atraumatic. EYES: EOMI. ENT: Nares clear, no rhinorrhea or epistaxis. Mucous membranes moist. Oropharynx without tonsillar hypertrophy exudate or other lesions. CHEST: Clear to auscultation. No respiratory distress. No wheezes rales or rhonchi HEART: Regular rate and rhythm. No murmur heard. Normal peripheral pulses. ABDOMEN: Soft, nontender, nondistended, normal active bowel sounds. EXTREMITIES: Normal range of motion. No edema. SKIN: Warm, dry, no rash. NEURO: No focal deficits. Alert and oriented x3. PSYCH: Normal mood and affect Course Course Emergency Course: Patient resting comfortably after zofran, pepcid Vital Signs Vital signs: Vital Signs Temperature 98.3 F 04/02/25 22:22 Pulse Rate 83 04/02/25 22:22 Respiratory Rate 18 04/02/25 22:22 Blood Pressure 134/81 04/02/25 22:22 Pulse Oximetry 99 04/02/25 22:22 Oxygen Delivery Room Air 04/02/25 22:22 Temperature 98.3 F 04/02/25 22:22 Pulse Rate 83 04/02/25 22:22 Respiratory Rate 18 04/02/25 22:22 Blood Pressure 134/81 04/02/25 22:22 Pulse Oximetry 99 04/02/25 22:22 Oxygen Delivery Room Air 04/02/25 22:22 MDM - Abdominal Pain MDM Narrative Medical decision making narrative: Patient presents the emergency department for reflux symptoms. No concerning findings on laboratory evaluation. Relief after Zofran and Pepcid. Instructed to follow-up with PCP Differential Diagnosis Differential diagnosis: Likely abdominal pain, gastroenteritis and other (GERD, esophagitis, gastritis) Lab Data Attestation: I reviewed the patient's lab results. 04/02/25 22:53 04/02/25 22:53 Labs: Lab Results 04/02/25 04/02/25 Range/Units 22:53 23:55 WBC 8.8 (4.5-10.0) K/mm3 RBC 4.73 (4.2-5.4) M/mm3 Hgb 14.0 (12.0-15.0) g/dL Hct 42.6 (37.0-47.0) % MCV 90.1 (80-100) fl MCH 29.6 (26-34) pg MCHC 32.9 (32-36) g/dl RDW 12.4 (11.5-14.5) % Plt Count 276 D (150-375) k/mm3 MPV 10.6 H (7.4-10.4) fl Immature Gran % (Auto) 0.5 (0-0.5) % Neut % (Auto) 66.4 (45.5-73.1) % Lymph % (Auto) 28.0 (18.3-44.2) % [place] % (Auto) 4.0 (2.6-8.5) % Eos % (Auto) 0.6 (0-4.4) % Baso % (Auto) 0.5 (0.2-1.2) % Lymph # (Auto) 2.47 (0.9-3.2) K/mm3 [place] # (Auto) 0.4 (0.1-0.6) K/mm3 Eos # (Auto) 0.1 (0-0.3) K/mm3 Baso # (Auto) 0.0 (0.0-0.1) K/mm3 Abs Immat Gran (auto) 0.04 H (0.00-0.031) K/mm3 Absolute Neuts (auto) 5.9 (1.3-6.7) K/mm3 Absolute Nucleated RBC 0.000 (0.0-0.012) K/mm3 Nucleated RBC % 0.0 (0.0-0.2) % Sodium 138 (137-145) mmol/L Potassium 4.0 (3.4-5.0) mmol/L Chloride 106 (98-107) mmol/L Carbon Dioxide 23 (22-30) mmol/L Anion Gap 9 (4-12) mmol/L BUN 9 (7-17) mg/dL Creatinine 0.71 (0.7-1.0) mg/dL Estim Creat Clear Calc 80 ml/min Estimated GFR > 60 (59 - ) Glucose 99 (65-110) mg/dL Calcium 10.4 H (8.4-10.2) mg/dL Total Bilirubin 0.4 (0.2-1.3) mg/dL AST 26 (14-36) U/L ALT 18 (6-35) U/L Alkaline Phosphatase 79 (38-126) U/L Total Protein 8.6 H (6.3-8.2) g/dL Albumin 5.2 H (3.5-5.1) g/dL Lipase 93 (23-300) U/L Urine Color Yellow (Yellow) Urine Appearance Clear (Clear) Urine pH 6.0 (5.0-9.0) Ur Specific [place] 1.019 (1.001-1.035) Urine Protein Negative (Negative) mg/dL Urine Glucose (UA) Negative (Negative) mg/dL Urine Ketones Negative (Negative) mg/dL Ur Blood (Man) Negative (Negative) Urine Nitrate Negative (Negative) Urine Bilirubin Negative (Negative) Urine Urobilinogen 1.0 (<2.0) mg/dL Leukocyte Esterase Rfl Trace H (Negative) JOSE/UL Urine RBC 0-2 (0-2) /hpf Urine WBC 0-5 (0-3) /hpf Ur Squamous Epith Cells None seen (Few) /hpf Urine Bacteria None seen /hpf Urine Casts 0-2 Critical Care Time Critical Care Time Critical Care Time: No Discharge Plan Discharge Clinical Impression: Gastroesophageal reflux disease Qualifiers: Esophagitis presence: esophagitis presence not specified Qualified Code(s): K 21.9 - Gastro-esophageal reflux disease without esophagitis Patient Disposition: Home Condition: Improved Instructions: GERD (Gastroesophageal Reflux Disease) (ED) Additional Instructions: Return to the ER if you experience fever, abdominal pain with nausea and vomiting, you are unable to keep down liquids or solids, or any other symptoms that are concerning to you Avoid spicy/acidic foods. Avoid eating just before bedtime. Avoid anti- inflammatories. Avoid alcohol. Pepcid as needed Follow up with your primary care doctor Patient Language: Welsh Prescriptions: No Action fluoxetine 10 mg capsule 10 mg PO DAILY Linzess 145 mcg capsule 145 mcg PO DAILY 30 Days Qty: 30 2RF Follow-up/Referrals: Hair Yuan MD [Primary Care Provider, Family Practice]
[2025-04-02 22:59] LABS: Hematocrit 42.6 % (37.0-47.0); Hemoglobin 14.0 g/dL (12.0-15.0); Immature Granulocyte Percent A 0.5 % (0-0.5); Lymphocytes Absolute Auto 2.47 K/mm3 (0.9-3.2); Mean Corpuscular HGB Conc 32.9 g/dl (32-36); Mean Corpuscular Hemoglobin 29.6 pg (26-34); Mean Corpuscular Volume 90.1 fl (80-100); Nucleated Red Blood Cells Absolute Auto 0.000 K/mm3 (0.0-0.012); Nucleated Red Blood Cells Perc 0.0 % (0.0-0.2); Platelet Count Result 276 k/mm3 (150-375); Red Blood Count 4.73 M/mm3 (4.2-5.4); White Blood Count 8.8 K/mm3 (4.5-10.0)
[2025-04-02 23:01] VITALS: BP 138/93; O2SAT 99
[2025-04-02 23:12] LABS: Alanine Aminotransferase 18 U/L (6-35); Albumin Level 5.2 g/dL (3.5-5.1); Alkaline Phosphatase 79 U/L (38-126); Anion Gap 9 mmol/L (4-12); Aspartate Amino Transferase 26 U/L (14-36); Bilirubin,Total 0.4 mg/dL (0.2-1.3); Blood Urea Nitrogen 9 mg/dL (7-17); Calcium 10.4 mg/dL (8.4-10.2); Carbon Dioxide 23 mmol/L (22-30); Chloride 106 mmol/L (98-107); Estimated CRCL calculation 80 ml/min; Estimated Glomerular Filt Rate > 60; Glucose 99 mg/dL (65-110); Lipase 93 U/L (23-300); Potassium 4.0 mmol/L (3.4-5.0); Sodium 138 mmol/L (137-145); Total Protein 8.6 g/dL (6.3-8.2)
[2025-04-02 23:16] VITALS: BP 125/90
[2025-04-02 23:31] VITALS: BP 131/91; O2SAT 100
[2025-04-03 00:06] LABS: Add Urine Microscopic? YES; Appearance Urine Clear (Clear); Glucose Urine UA Negative (Negative); Leukocyte Esterase Ur Trace LEU/UL (Negative); Nitrate Urine Negative (Negative); Non Pathogenic Casts 0-2; Specific Grav Ur 1.019 (1.001-1.035)
== END 2025-04-03 00:21 | disposition home or self-care (01) ==
PROVIDERS: Emergency Provider Physician Assistant; PCP Family Medicine
DX: K21.9 Gastro-esophageal reflux disease without esophagitis (principal); Z77.22 Contact with and (suspected) exposure to environmental tobacco smoke (acute) (chronic); Z79.899 Other long term (current) drug therapy; F41.9 Anxiety disorder, unspecified; F31.9 Bipolar disorder, unspecified
CPT/HCPCS: 36415; 80053; 81001; 83690; 85025; 96374; 96375; 99284; A9270; J2405